=== PATIENT | female | born 1955 | race Caucasian/White ===

== ENCOUNTER 2021-05-12 10:21 | Outpatient (REF) | payer SELFPAY | END 2021-05-12 10:22 | disposition home or self-care (01) | LOC: HO.HAP 10:21 | PROVIDERS: Visit Provider Family Medicine | DX: Z46.1 Encounter for fitting and adjustment of hearing aid (principal) | CPT/HCPCS: V5014 ==

== ENCOUNTER 2024-05-03 08:36 | Outpatient (REF) | payer MEDICARE, SELFPAY ==
--- NOTE | 2024-05-04 15:25 | MHC.AU.HA3 ---
Hearing Instrument Follow-Up- Binaural Date of Visit: 05/04/24 Follow-Up Summary: Tawanna is a previous hearing aid user from our clinic (sister of Jhoana Horvath), fit with Phonak Virto B90 Titanium CICs approximately 5 years ago. She recently lost her left device, and notes the occupational therapist's assistant end of her right device is beginning to fall into the shell. She brings with her a pair of Resound RICs, donated to her by her sister, which she hopes to have programmed as either a temporary or buttermaker continuous churn solution, though she would prefer to stick with the CIC style. Hearing thresholds relatively stable re: 2019 evaluation. Due to time constraints (pt arrived 15 min late), was only able to best-fit the Resound aids, and recommended earmolds and reprogramming with real ear measurements. Quoted $130 for slim tips, $50 for any maintenance or adjustments in the future. Reviewed standard pricing for new hearing aids. Per Donna, able to waive the $350 HAE fee. Tawanna inquired about business services administrator family discount as sister was longtime employee and still licensed; per Donna, will need to contact her after speaking with [employer] but as sister is no longer employee there is likely not any viable option for further discount. Diagnosis Code(s): Primary Diagnosis: H90.3 Bilateral Sensorineural Hearing Loss Signature: Provider: Ciara Raymond, [facility]
== END 2024-05-03 08:37 | disposition home or self-care (01) ==
LOC: HO.SH 08:36
PROVIDERS: Visit Provider Nurse Practitioner Primary Care
DX: Z01.118 Encounter for examination of ears and hearing with other abnormal findings (principal); H90.3 Sensorineural hearing loss, bilateral
CPT/HCPCS: 92557

== ENCOUNTER 2025-03-27 07:59 | Outpatient (REF) | payer MEDICARE, SELFPAY ==
--- OUTSIDE RECORDS SUMMARY | 2025-03-27 08:03 | XMS_ITS | Encounter Summary ---
Author Organization [facility] Address [address] [place] [address] [place] [address] Phone Care Team Providers Care Project Program Manager Name Role Phone Katie Gonzalez [facility] Primary Care Provider [phone] Soren Cesar [facility] Primary Care Provider + Soern Cesar [facility] Unavailable [phone] Encounter Details Date Type Department Care Team (Late st Contact Info) Description 06/27/2023 Procedure Pass [facility] Cardiovascular And Interventional Radiology [address] [place] [address] Social History Tobacco Use Types Packs/Day Years Used Date Smoking Tobacco: Never Smokeless Tobacco: Never Alcohol Use Standard Drinks/Week Comments Yes 1 (1 standard drink = 0.6 oz pure alcohol) 1 drink per week-2 glasses of wine Home Health Assessment: Transportation Answer Date Recorded Lack of Transportation (Medical) No 06/09/2023 Lack of Transportation (Non-Medical) No 06/09/2023 Patient Unable or Declines to Respond No 06/09/2023 Child or Family Care Answer Date Record ed Do you have problems with on e of the following making it difficult for you to work, study, or receive health care? No 06/18/2021 Education Answer Date Recorded Are you interested in more education? Not on gee e 06/20/2023 Are you concerned about learning? Not on file 06/20/2023 No 06/20/2023 No 06/20/2023 Food Answer Date Recorded Within the past 6 months we worried whether our food would run out before we got money to buy more. Never True 06/18/2021 Within the past 6 months the food we bought just didn't last and we didn't have enough money to get more. Never True Residential Stability Answer Date Recor ded What is your housing situation today? I have moni sing 06/18/2021 How many times have you move d in the past 12 months? Zero (I did not move) 06/18/2021 Paying for Meds Answer Date Recorded Do you have trouble paying for medicines? I jose se not to answer 06/18/2021 Paying Utility Bills Answer Date Record ed Do you have trouble paying your heating or elect ricity bill? No 06/18/2021 Transportation Answer Date Recorded Has the lack of transportati on kept you from medical appointments or from getting medications? No 06/18/2021 Unemployment Answer Date Recorded Are you currently unemployed or working on a part-time or temporary basis, and looking for work? I choose not to answer 06/18/2021 Digital Access Answer Date Recorded No 11/02/2022 No 11/02/2022 Reliable internet access at home? Not on file 11/02/2022 Device with a working camera? 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 file Not on file No t on file documented as of this encounter Plan of Treatment Upcoming Encounters Date Type Department Care Team (Late st Contact Info) Description 04/18/2025 9:00 AM EST Office Visit [facility] [address] [place] [address] 3rd Floor, [address] [place] [address] José Calhoun MD 22 [facility], [address] [place] [address] documented as of this encounter Visit Diagnoses Not on filedocumented in this encounter Additional Health Concerns Assessment Noted Time PHQ-2 Depression Total Score: 0 08/04/19 23 3:35 PM EST documented as of this encounter Care Teams Project Program Manager Relationship Specialty Start Date End Date Katie Gonzalez CNP 15 [facility], 2nd [place] [address] [email or web address] PCP - General Nurse Practitioner 05/16/23 08/18/23 Soren Cesar CNP 234 [facility], [facility] 7 [place] [address] PCP - General Family Medicine 08/19/23 Soren Cesar CNP [address] [place] [address], [facility] 7 [place] [address] [email or web address] Insurance Assigned Provider 09/16/24 documented as of this encounter Additional Source Comments The information contained in this document represents components of the legal health record. It is not the complete legal health record.[facility]
--- OUTSIDE RECORDS SUMMARY | 2025-03-27 08:03 | XMS_ITS | Encounter Summary ---
Author Organization [facility] Address [address] [place] [address] [place] [address] Phone Care Team Providers Care Truck Sales Representative Name Role Phone Katie Gonzalez MEDICAL OFFICE MANAGER Primary Care Provider [phone] Soren Cesar [facility] Primary Care Provider + Soren Cesar MEDICAL OFFICE MANAGER Unavailable [phone] Encounter Details Date Type Department Care Team (Late st Contact Info) Description 06/24/2023 Procedure Pass [facility], Ct Scan - [address] [address] Social History Tobacco Use Types Packs/Day Years [...] Description 04/18/2025 9:00 AM EST Office Visit [facility] [address] [place] [address] 3rd Floor, [address] [place] [address] José Calhoun MD 22 [facility], [address] [place] [address] documented as of this encounter Visit Diagnoses Not on filedocumented in this encounter Additional Health Concerns Assessment Noted Time PHQ-2 Depression Total Score: 0 08/04/19 23 3:35 PM EST documented as of this encounter Care Teams Truck Sales Representative Relationship Specialty Start Date End Date Katie Gonzalez CNP 15 [facility], 2nd [place] [address] [email or web address] PCP - General Nurse Practitioner 05/16/23 08/18/23 Soren Cesar CNP [address] [place] [address] 7 [place] [address] PCP - General Family Medicine 08/19/23 Soren Cesar CNP [address] [place] [address] 7 [place] [address] [email or web address] Insurance Assigned Provider 09/16/24 documented as of this encounter Additional Source Comments The information contained in this document represents components of the legal health record. It is not the complete legal health record.[facility]
--- OUTSIDE RECORDS SUMMARY | 2025-03-27 08:03 | XMS_ITS | Encounter Summary ---
Author Organization [facility] Address [address] [place] [address] Phone Care Team Providers Care Lithographic Retoucher Apprentice Name Role Phone Katie Gonzalez CNP Primary Care Provider [phone] Katie Gonzalez CNP Primary Care Provider [phone] Em Uribe Unavailable [phone] Pcp, Unknown Primary Care Provider Unavailabl e Katie Gonzalez CNP Primary Care Provider [phone] Soren Cesar [facility] Primary Care Provider + Soren Cesar [facility] Unavailable [phone] Encounter Details Date Type Department Care Team (Late st Contact Info) Description 01/27/2018 Ancillary Orders [facility],Outside Imaging [address] [place] [address] System, Provider Not In, [facility] [address] [address] Social History Tobacco Use Types Packs/Day Years Used Date Smoking Tobacco: Never Smokeless Tobacco: Never Alcohol Use Standard Drinks/Week Comments Yes 1 (1 standard drink = 0.6 oz pur e alcohol) Comments Unknown Sex and Gender Information Value Date Recorded Sex Assigned at Female 05/05/2023 12:38 PM EST Legal Sex Female 9:55 PM EDT Gender Identity Female 05/05/2023 12:38 PM EST Sexual Orientation Straight 05/29/2023 3: 10 PM EST documented as of this encounter Plan of Treatment Upcoming Encounters Date Type Department Care Team (Late st Contact Info) Description 04/18/2025 9:00 AM EST Office Visit [facility] 22 [facility] 3rd Floor, [address] [place] [address] José Calhoun MD 22 [facility], [address] [address] documented as of this encounter Results * US Thyroid Gland Outside (No Interpretation) (11/01/2016 12:00 AM EDT) Narrative SYSTEMGENERATED, DOCUMENTATION - 01/27/2018 11:26 AM EDT This study is for PACS storage only and not for interpretation. us Provider Not In System PhD IMG OUTSIDE IMAGING W /OUT INTERPRETATION Final Result documented in this encounter Visit Diagnoses Not on filedocumented in this encounter Care Teams Lithographic Retoucher Apprentice Relationship Specialty Start Date End Date Katie Gonzalez CNP [address] [address] PCP - General 03/31/17 07/05/19 Katie Gonzalez CNP [address] [address] PCP - General Family Medicine 07/06/19 05/04/23 Pcp, Unknown PCP - General 05/05/23 05/15/23 Katie Gonzalez CNP [address] [address] PCP - General Nurse Practitioner 05/16/23 08/18/23 Soren Cesar CNP [address] [place] [address] 7 [place] [address] [email or web address] PCP - General Family Medicine 08/19/23 Em Uribe [address] [place] [address] PHCM Community Health Worker 03/19/22 03/24/22 Soren Cesar CNP [address] [place] [address] 7 [place] [address] [email or web address] Insurance Assigned Provider 09/16/24 documented as of this encounter Additional Source Comments The information contained in this document represents components of the legal health record. It is not the complete legal health record.[facility]
--- OUTSIDE RECORDS SUMMARY | 2025-03-27 08:03 | XMS_ITS | Encounter Summary ---
Author Organization [facility] Address [address] [place] [address] Phone Care Team Providers Care Distance Education Faculty Liaison Name Role Phone Katie Gonzalez CNP Primary Care Provider [phone] Katie Gonzalez CNP Primary Care Provider [phone] Em Uribe Unavailable [phone] Pcp, Unknown Primary Care Provider Unavailabl e Katie Gonzalez CNP Primary Care Provider [phone] Soren Cesar [facility] Primary Care Provider + Soren Cesar [employer] Unavailable Encounter Details Date Type Department Care Team (Late st Contact Info) Description 04/10/2018 Transcribe Orders [facility] [address] [place] [address] [place] [address] Lynn Massey PA [address] [place] [address] [facility] [place] [address] Nontoxic multinodular goiter (Primary Dx) Social History Tobacco Use Types Packs/Day Years [...] Description 04/18/2025 9:00 AM EST Office Visit [facility] 22 [facility] 3rd Floor, [address] [place] [address] José Calhoun MD 22 [facility], [address] [place] [address] [email or web address] documented as of this encounter Results * Free T4 (04/10/2018 10:28 AM EDT) FREE T4 1.4 0.9 - 1.7 ng/dL [facility] Blood 04/10/2018 10:2 8 AM EDT 04/10/2018 10:31 AM EDT us Lynn Ulises [facility] [place] LAB BLOOD ORDERABLES Final Result Performing Organization Address City/Special Care Hospital/ZIP Co de Phone Number [address] [address] * TSH (04/10/2018 10:28 AM EDT) TSH 0.95 0.27 - 4.20 uIU/mL [facility] Blood 04/10/2018 10:2 8 AM EDT 04/10/2018 10:31 AM EDT Lynn [facility] [place] LAB BLOOD ORDERABLES Final Result [address] [address] documented in this encounter Visit Diagnoses Diagnosis Nontoxic multinodular goiter- Primary documented in this encounter Care Teams Distance Education Faculty Liaison Relationship Specialty Start Date End Date Katie Gonzalez CNP [address] [address] PCP - General 03/31/17 07/05/19 Katie Gonzalez CNP [address] [address] PCP - General Family Medicine 07/06/19 05/04/23 Pcp, Unknown PCP - General 05/05/23 05/15/23 Katie Gonzalez CNP [address] [address] PCP - General Nurse Practitioner 05/16/23 08/18/23 Soren Cesar CNP [address] [place] [address] PCP - General Family Medicine 08/19/23 Em Uribe [address] [place] [address] PHCM Community Health Worker 03/19/22 03/24/22 Soren Cesar CNP [address] [place] [address] 7 [place] [address] Insurance Assigned Provider 09/16/24 documented as of this encounter Additional Source Comments The information contained in this document represents components of the legal health record. It is not the complete legal health record.[facility]
--- OUTSIDE RECORDS SUMMARY | 2025-03-27 08:03 | XMS_ITS | Encounter Summary ---
Author Organization [facility] Address [address] [place] [address] [place] [address] Phone Care Team Providers Care Multi Share Program Coordinator Name Role Phone Katie Gonzalez CNP Primary Care Provider [phone] Em Uribe Unavailable [phone] Pcp, Unknown Primary Care Provider Unavailabl e Katie Gonzalez CNP Primary Care Provider [phone] Soren Cesar EVIDENCE CUSTODIAN Primary Care Provider + Soren Cesar CNP Unavailable Encounter Details Date Type Department Care Team (Late st Contact Info) Description 06/18/2021 Procedure Pass [facility] - [address] [place] [address] Social History Tobacco Use Types Packs/Day Years Used Date Smoking Tobacco: Never Smokeless Tobacco: Never Alcohol Use Standard Drinks/Week Comments Yes 1 (1 standard drink = 0.6 oz pure alcohol) 1 drink per week-2 glasses of wine Child or Family Care Answer Date Record ed Do you have problems with on e of the following making it difficult for you to work, study, or receive health care? No 06/18/2021 Education Answer Date Recorded Are you interested in help w ith more adult education (for example, completing high school, GED, job training, learning the Filipino language, technical skills, or developing parenting skills)? No 06/18/2021 Food Answer Date Recorded Within the past [...] work? I choose not to answer 06/18/2021 Comments No Sex and Gender Information Value [...] Description 04/18/2025 9:00 AM EST Office Visit [facility] [address] [place] [address] 3rd Floor, [address] [place] [address] José Calhoun MD 22 [facility], [address] [address] [email or web address] documented as of this encounter Visit Diagnoses Not on filedocumented in this encounter Care Teams Multi Share Program Coordinator Relationship Specialty Start Date End Date Katie Gonzalez CNP [address] [address] PCP - General Family Medicine 07/06/19 05/04/23 Pcp, Unknown PCP - General 05/05/23 05/15/23 Katie Gonzalez CNP [address] [address] PCP - General Nurse Practitioner 05/16/23 08/18/23 Soren Cesar, KARL [address] [place] [address] 7 [place] [address] PCP - General Family Medicine 08/19/23 Em Uribe 10 [place] [address] PHCM Community Health Worker 03/19/22 03/24/22 Soren Cesar, KARL [address] [place] [address] 7 [place] [address] Insurance Assigned Provider 09/16/24 documented as of this encounter Additional Source Comments The information contained in this document represents components of the legal health record. It is not the complete legal health record.[facility]
--- OUTSIDE RECORDS SUMMARY | 2025-03-27 08:03 | XMS_ITS | Clinical Summary ---
Author Organization [facility] Address [address] [place] [id number] Phone Care Team Providers Care [employer] Officer Name Role Phone Soren Galindo [employer] Primary Care Provider + Soren Galindo [employer] Unavailable [phone] Allergies Active Allergy Reactions Criticality Noted Date Comments Kxuqfgo-Tod-Tek Reductase Inhibitors 05/12/2017 Liver enzymes get very high. Medications CALCIUM ORAL Take 1 tablet by mouth daily. Active multivitamin per tablet Take 1 tablet by mouth daily. Active ascorbic acid, vitamin C, (VITAMIN C) 500 MG tablet Take 500 mg by mouth daily. Active acetaminophen (TYLENOL) 325 mg tablet Take 2 tablets (650 mg total) by mouth every 6 (six) hours as needed. 0 023 Active hydrOXYzine (ATARAX) 25 MG tablet Take 1 tablet (25 mg total) by mouth 3 (three) times a day as needed for itching. 30 tablet 024 Active metoprolol succinate (TOPROL-XL) 50 MG 24 hr tablet TAKE 1 TABLET BY MOUTH EVERY DAY 90 tablet 3 025 Active finasteride (PROSCAR) 5 mg tabletIndications: Androgenic alopecia TAKE 1 TABLET (5 MG TOTAL) BY MOUTH DAILY. 90 tablet 3 025 Active minoxidiL (LONITEN) 2.5 MG tabletIndications: Androgenic alopecia Take 1 tablet (2.5 mg total) by mouth daily. 90 tablet 025 Active lisinopril (PRINIVIL,ZESTRIL) 30 MG tabletIndications: Essential hypertension,Mixed hyperlipidemia TAKE 1 TABLET BY MOUTH EVERY DAY 90 tablet 3 025 Active ezetimibe (ZETIA) 10 mg tabletIndications: Essential hypertension,Mixed hyperlipidemia TAKE 1 TABLET BY MOUTH EVERY DAY 90 tablet 3 025 Active ELIQUIS 5 mg tablet TAKE 1 TABLET (5 MG TOTAL) BY MOUTH TWICE A DAY TO PREVENT BLOOD CLOT IN CHRONIC ATRIAL FIBRILLATION 60 tablet 11 025 Active apixaban (ELIQUIS) 5 mg tabletIndications: prevent thromboembolism in chronic atrial fibrillation Take 1 tablet (5 mg total) by mouth 2 (two) times a day. Indications: treatment to prevent blood clots in chronic atrial fibrillation 180 tablet 3 024 2024 Discontinued Active Problems Problem Noted Date Diagnosed Date Tongue plaque 11/28/2023 Assessment & Plan (11/28/2023 2:16 PM EDT): Oral Discomfort: Patient reports a coated tongue, but no other symptoms. Less likely to be oral Tess due to lack of other symptoms. -No specific treatment plan discussed. Rash 11/18/2023 Assessment & Plan (11/28/2023 2:15 PM EDT): Assessment & Plan Undiagnosed Rash: Persistent, worsening rash with pruritus and discomfort. Failed prior treatments with antibiotics and wqpx-jab-whhoept antifungals. Possible fungal etiology suggested by patient. Scab sent for pathology. -Start Hydroxyzine for pruritus, initially at night due to potential drowsiness. -Start a stronger topical steroid, apply twice daily for no more than two weeks. -Wait for pathology results to guide further treatment. Follow-up: Await pathology results and adjust treatment plan accordingly. Assessment & Plan (11/18/2023 12:35 PM EDT): Erythrasma: Bilateral axillary rash of 2.5 weeks duration, initially thought to be fungal or allergic reaction. It has become painful and darkened in color. Failed treatment with miconazole, clotrimazole, cortisone cream, and Bactine. -Start Clindamycin topical lotion twice daily for 7-10 days. -Continue use of Bactine for pain relief if needed. -Check for improvement in 48-72 hours. -If no improvement, patient to contact office. S/P laparoscopic appendectomy 06/20/2023 Overview (08/23/2023): 05/2023-sepsis with perforation. Has had abscess formation requiring drainage. Assessment & Plan (08/23/2023 8:26 AM EDT): Has had several complicating abscesses, still has pain to palpation, is only just starting to get back to baseline for physical activity and diet. Continue to increase activity as tolerated, continue to advance diet as tolerated. Atrial fibrillation 05/24/2023 Overview (08/23/2023): Post-op. On eliquis, metoprolol, and finasteride without recurrence. Follows with cardiology. Assessment & Plan (08/23/2023 8:26 AM EDT): Was found postop, she was cardioverted and put on Eliquis and metoprolol. She was symptomatic at that time, with profound anxiety. She denies any recurrence of symptoms. Regular rate and rhythm today. Follow-up with cardiology. Assessment & Plan (05/25/2023 2:26 PM EST): Medical team consulted for A-fib with RVR Post operatively pt was tachycardic. CTA was done no PE. New atrial fibrillation on EKG 05/24, pt was SOB and tachycardic on 05/23, EKG on 05/22 showed NSR Cardiology consulted Metoprolol IV and PO added, metoprolol increased to 50 mg every 6 hours, given 1 dose of digoxin 0.5 mg Started on Eliquis for anticoagulation for elevated [id number] Echo showed Mild concentric LVH. LV cavity size is normal. 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 We discussed various options for finding a therapist Assessment & Plan (04/07/2018 8:57 AM EDT): Anxiety increased since dx w prostate cx. She is on low dose wellbutrin & feels this is helpful. Assessment & Plan (11/15/2017 2:25 PM EDT): As been on low-dose Wellbutrin with good effect since she came to me. Continue current regimen Bilateral hearing loss 11/15/2017 Assessment & Plan (11/15/2017 2:24 PM EDT): Evaluated by audiology, she will bring in results. Referred to ENT Dysfunction of both eustachian tubes 11/15/2017 Assessment & Plan (11/15/2017 2:25 PM EDT): Restart Flonase and continue antihistamine Fibrocystic breast changes of both breasts 05/02 Overview (05/02/2017): Hx multiple fibroadenomas & breast cyst. Bx negative Assessment & Plan (05/02/2017 8:22 PM EST): UTD on mammo Essential hypertension 05/02/2017 Overview (08/23/2023): Lisinopril 30mg Assessment & Plan (08/23/2023 8:27 AM EDT): Stable in office today. Continue with current lisinopril 30 mg. Assessment & Plan (05/24/2023 1:23 PM EST): Continue Lisinopril Metoprolol added for rate control Assessment & Plan (10/21/2022 4:06 PM EDT): Well-controlled Assessment & Plan (08/04/2022 5:56 PM EST): Well-controlled Assessment & Plan (03/18/2022 3:48 PM EDT): Continue current regimen Assessment & Plan (09/17/2021 4:18 PM EDT): continue lisinopril. Monitor BP while on minoxidil & finasteride Assessment & Plan (03/09/2021 3:39 PM EDT): Asked her to go for labs keely. Continue lisinopril. Next FU should be OV Assessment & Plan (08/07/2019 2:52 PM EST): Recommend she take lisinopril daily Assessment & Plan (04/07/2018 9:00 AM EDT): Well controlled Assessment & Plan (11/15/2017 2:25 PM EDT): Continue current regimen Assessment & Plan (08/10/2017 8:49 PM EST): Having low BPs at home and we're increasing her spironolactone so I will have her decrease lisinopril to 10 mg Assessment & Plan (05/26/2017 2:00 PM EST): Increased prolactin to 50 mg. Email me with blood pressure readings in one week Assessment & Plan (05/12/2017 1:10 PM EST): Decreasing lisinopril from 40 to 20 mg & HCTZ from 25 to 12.5 since we will be adding in & tapering up spironolactone. FU 2 weeks Hyperlipidemia 05/02/2017 Assessment & Plan (05/25/2023 2:22 PM EST): Continue Zetia Assessment & Plan (10/21/2022 4:06 PM EDT): Continue Zetia Assessment & Plan (03/18/2022 3:49 PM EDT): Can you Zetia. For mildly elevated triglycerides I recommend omega-3 or eating more fish or flax oil supplement Assessment & Plan (09/17/2021 4:18 PM EDT): Continue Zetia. Labs before next visit Assessment & Plan (06/18/2021 9:17 PM EST): Dietary changes & trial of another statin discussed. Due ot hx of liver injury on statin will start her on Zetia Assessment & Plan (03/09/2021 3:39 PM EDT): Recheck lipid panel Assessment & Plan (04/07/2018 8:59 AM EDT): Pt trying to control w diet. FU labs before next visit Prediabetes 05/02/2017 Assessment & Plan (05/25/2023 2:23 PM EST): On Metformin at home HgbA1C 05/2023 was 5.8% Glucose have been within range on am BMP Follow up A1C, consider low dose SS insulin pending results. Assessment & Plan (10/21/2022 4:06 PM EDT): She is tolerating metformin well. Assessment & Plan (08/04/2022 5:57 PM EST): She would like to start metformin. She was counseled on benefits and risks/side effects. Start 500 mg daily with meal. Follow-up in 3 months Assessment & Plan (03/18/2022 3:49 PM EDT): Due to financial strain she is buying more affordable foods which means she is eating more carbohydrates. Today we discussed getting vegetables from food bank. Discussed walking more to reduce insulin resistance. Recheck A1c in 3 months Assessment & Plan (03/09/2021 3:40 PM EDT): She is off metformin due to difficulty remembering to take it. Labs ordered Assessment & Plan (08/07/2019 2:52 PM EST): Pt follows very healthy lifestyle. She will start metformin. Possible side effects reviewed. FU 3 mos Assessment & Plan (05/02/2017 8:22 PM EST): Discussed diet & exercise. 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 Minoxidil prescription Sig was corrected. Continue taking 2.5 mg daily Assessment & Plan (09/17/2021 4:19 PM EDT): Reviewed possible side effects of finasteride and oral minoxidil. Fortunately she is tolerating them very well. Refill sent. Follow-up in 3 months for BP recheck, sooner if any symptoms of low blood pressure. Assessment & Plan (04/07/2018 8:59 AM EDT): On low dose spironolactone. Follows with Andrew Warren Assessment & Plan (11/15/2017 2:26 PM EDT): She stops prolactin due to side effects. She is still on Rogaine. I do not recommend starting hormone therapy or treating with levothyroxine in the absence of hypothyroidism. We discussed some cosmetic options and follow-up with dermatology Assessment & Plan (08/10/2017 8:49 PM EST): she is noticing improvement on spironolactone 100 mg. She would like to try and get up to 200 mg which is the recommended dose for androgenic alopecia treatment. She is going to increase it to 150 mg now. She is advised to inform me if the headaches become more frequent or severe. She will go for labs today. Assessment & Plan (05/12/2017 1:09 PM EST): Derm agrees, androgenic alopecia. Recommended spironolactone. Reviewed ADRs w her, especially hyperkalemia & hypotension. Made adjustments to her dose of lisinopril & HCTZ. She will get labs first before starting med changes. She will FU w me in 2 weeks for recheck of BP & K level. I gave her lists of high & low K foods. Assessment & Plan (05/02/2017 8:21 PM EST): Labs order. Suspect androgenic alopecia. Referred to derm. Primary insomnia 05/02/2017 Overview (05/02/2017): Awakens 4-5 times per night, often because of vivid dreams. Can't fall back asleep. Often uses melatonin at bedtime but it doesn't help Assessment & Plan (05/02/2017 8:21 PM EST): Discussed CBTI techniques Tinnitus of both ears 05/02/2017 Overview (05/02/2017): Chronic. Has some hearing loss on right. Had evaluation w manufacturing sales representative Rosacea 05/02/2017 Overview (05/02/2017): Acne rosacea. used topical clindamycin for several years. Assessment & Plan (05/02/2017 8:21 PM EST): Will try switching to metrogel Multiple thyroid nodules 05/02/2017 Overview (03/18/2022): 10/2016 Ul multiple small bilat nodules, largest on R lobe 11 mm x 10 mm. 05/2018 Bx benign. Plan yearly FU UL 06/[address] Mahan. Yanet. Recommend FU UL in 1 year 06/2021 Diffuse bilateral thyroid nodules, the vast majority with cystic components. The largest is located on the right measuring 1.1 cm in maximal diameter. None have developed features suspicious to warrant FNA. No definite follow-up is indicated. Assessment & Plan (05/25/2023 2:23 PM EST): TSH normal Assessment & Plan (04/07/2018 8:58 AM EDT): Following antonio Massey. FU UL planned in 6 mos Assessment & Plan (05/02/2017 8:26 PM EST): FU UL due 10/2017 Resolved Problems Problem Noted Date Diagnosed Date Resolved Date Intra-abdominal abscess 05/29/202301/2024 Right lower quadrant abdominal pain 05/23/2023 06/20/2023 Perforated appendicitis 05/22/202301/2024 Assessment & Plan (05/25/2023 2:23 PM EST): Presented to the hospital on 05/22 with abd pain found to have perforated appendicitis CT on admission showed: Acute perforated appendicitis, with likely organizing 3.3 cm right lower quadrant abscess. Soft tissue along the cecal base may represent reactive inflammation. Underlying lesion is not excluded. On 05/22/2023 she underwent LAPAROSCOPIC APPENDECTOMY intra operative findings include: Perforated appendix with adjacent abscess and copious purulent fluid throughout the abdomen. Continue Zosyn as per surgery Acute pain of left knee 06/18/202110/11 Assessment & Plan (06/18/2021 9:10 PM EST): Xray and PT ordered Post-menopausal bleeding 08/10/201811/2021 Assessment & Plan (08/10/2018 9:08 PM EST): Recommendation for pelvic ultrasound and endometrial biopsy were reviewed with patient. Labs were also ordered. She is referred to gynecology for biopsy. Pain of right hip joint 04/07/2018/07/2022 Assessment & Plan (06/18/2021 9:12 PM EST): Xray & PT ordered Assessment & Plan (04/07/2018 9:01 AM EDT): Given home exercises. Pt advised to follow up if sx worsen or fail to improve. Chronic allergic rhinitis 11/15/2017 Assessment & Plan (11/15/2017 2:25 PM EDT): Continue antihistamine Encounters Date Type Department Care Team Description 03/12/2025 Refill [facility] [address], [address] [place] [address] José Calhoun MD Medication Refill 02/21/2025 Refill [facility] [address] [place] [address] Angela Jerez MD Medication Refill 01/14/2025 Telephone [facility] [address] [place] [address] Sroen Galindo CNP Referral ([facility]) from Last 3 Months Immunizations Immunization Administration Dates Next Due COVID-19 (Pre-04/04) Pfizer Vaccine, mRNA, PF 09/11/2020,08/21/2020 Influenza High-Dose Quadriva lent Preservative Free IM 05/27/2023(Deferred: Patient Refused),06/18/2021 Influenza Quadrivalent Prese rvative Free IM 03/09/2018,05/02/2017 Influenza Recombinant Esdras valent Preservative Free IM 03/25/2020 Pneumococcal conjugate PCV20 03/18/2022 Pneumococcal polysaccharide PPSV23 06/18/2021 Td (adult),2 Lf Tetanus Toxo id, PF, Adsorbed 03/18/2022 Family History Medical History Relation Comments Melanoma Daughter stage 2 Brain cancer Father Glioblastoma Hyperlipidemia Father Hypertension Father Stroke Maternal Grandfather Osteoporosis Maternal Grandmother Stroke Maternal Grandmother Alzheimer's disease Mother Hypertension Mother Vascular degeneration Mother Breast cancer Niece Peripheral Arterial Disease Paternal Grandfather Stroke Paternal Grandfather Stroke Paternal Grandmother Brain cancer Paternal Uncle Anxiety disorder Sister 1 Hyperlipidemia Sister 1 Hypertension Sister 1 Hyperlipidemia Sister 2 Hypertension Sister 2 Relation Status Comments Brother Alive Daughter Alive Father (Age 72) Maternal Grandfather Maternal Grandmother Mother (Age 85) Niece Paternal Grandfather Paternal Grandmother Paternal Uncle Sister 1 Alive Sister 2 Alive Social History Tobacco Use Types Packs/Day Years Used Date Smoking Tobacco: Never Smokeless Tobacco: Never Tobacco Cessation:Counseling Given: Not Answered Alcohol Use Standard Drinks/Week Comments Not Currently 1 (1 standard drink = 0.6 oz pur e alcohol) hasn't drank since may Home Health Assessment: Transportation Answer Date Recorded [...] with a working camera? Not on file Intimate Partner Violence Answer Date R ecorded Are you denied basic needs s uch as food, clothing, or medical care? No 08/18/2023 In the past 12 months have y ou been in a relationship with a person who hurts, threatens, or tries to control you? No 08/18/2023 Are you denied basic needs s uch as food, clothing, or medical care? No 08/18/2023 In the past 12 months have y ou been in a relationship with a person who hurts, threatens, or tries to control you? No 08/18/2023 Comments No Sex and Gender Information Value Date Recorded Sex Assigned at Female 05/05/2023 12:38 PM EST Legal Sex Female 9:55 PM EDT Gender Identity Female 05/05/2023 12:38 PM EST Sexual Orientation Straight 05/29/2023 3: 10 PM EST Occupation Industry Job Start Date Job End Date Working / retired teacher Not on file Not on file No t on file Last Filed Vital Signs Vital Sign Reading Time Taken Comments Blood Pressure 132/82 05/29/2024 9:48 AM EST Pulse 84 05/29/2024 9:48 AM EST Temperature 36.2 C (97.2 F) 05/29/2024 9:48 AM EST Respiratory Rate 18 11/28/2023 1:45 PM EDT Oxygen Saturation 98% 05/29/2024 9:48 AM EST Inhaled Oxygen Concentration - - Weight 88 kg (194 lb) 05/29/2024 9:48 AM EST Height 170.2 cm (5' 7.01 ) 05/29/2024 9:48 AM ES T Body Mass Index 30.38 05/29/2024 9:48 AM EST Plan of Treatment Upcoming Encounters Date Type Department Care Team (Late st Contact Info) Description 04/18/2025 9:00 AM EST Office Visit [facility] [address] [place] [address] [address] Floor, [address] [place] [address] José Calhoun MD [address], [address] [place] [address] [email or web address] Health Maintenance Due Date Last Done Comments HEPATITIS C SCREENING 1973 COLOGUARD 2000 COLONOSCOPY 2000 FOBT 2000 SIGMOIDOSCOPY 2000 VIRTUAL COLONOSCOPY 2000 ZOSTER VACCINES (1 of 2) 2005 COLORECTAL CANCER SCREENING 03/17/2023 FIT TEST 03/17/2023 03/17/2022 MAMMOGRAM 07/10/2023 07/10/2021, 08/10/2019 DEPRESSION SCREENING 08/17/2024 08/18/2023 CREATININE LEVEL 08/31/2024 09/01/2023, 04/2024, 06/16/2023, Additional history exists POTASSIUM LEVEL 08/31/2024 09/01/2023, 06/13, 06/16/2023, Additional history exists BLOOD PRESSURE 11/27/2024 05/29/2024 INFLUENZA VACCINE (#1) 2025 , 03/25/2020, 03/09/2018, Additional history exists COVID-19 VACCINE ( season) 2025 09/11/2020, 08/21/2020 SCREENING FOR DIABETES 09/13/2026 09/14/2023, 2023 LIPID PANEL 05/25/2028 05/25/2023, 10/2021, 06/17/2021, Additional history exists RSV VACCINE (1 - 1-dose 75+ series) 2030 Adult Td,Tdap Booster 03/18/2032 03/18/2022 PNEUMOCOCCAL VACCINES (50+ years) Completed 03/18/2022, 06/18/2021 OSTEOPOROSIS SCREENING INITIAL (ONE-TIME) Completed 05/23/2024 SMOKING STATUS SCREENING (Once After 26 Yrs) Completed 05/29/2024 HEPATITIS A VACCINES Aged Out No long er eligible based on patient's age to complete this topic HIB VACCINES Aged Out No longer eligi ble based on patient's age to complete this topic MENINGOCOCCAL VACCINES (ACWY) Aged Out No longer eligible based on patient's age to complete this topic MENINGOCOCCAL VACCINES (B) Aged Out N o longer eligible based on patient's age to complete this topic Medical Devices Not on file Procedures Procedure Name Priority Date/Time Associated Diagnosis Comments BD DXA AXIAL (SPINE) WITH HIP Routine 05/23/2024 1:49 PM EST Screening due COMPREHENSIVE METABOLIC PANEL Routine 09/01/2023 10:37 AM EDT S/P laparoscopic appendectomy LIPID PANEL Routine 05/25/2023 2:48 AM EST HC BLOOD OCCULT FECAL HGB DETER IA QUAL FECES 1-3 Routine 03/17/2022 8:00 AM EDT Screening for colon cancer BI MAMMOGRAM SCREENING WITH TOMOSYNTHESIS WITH CAD (BILATERAL) Routine 07/10/2021 3:25 PM EST Screening breast examination from Last 3 Months or Most Recently Relevant to Health Maintenance Results * BD DXA AXIAL (SPINE) WITH HIP (05/23/2024 1:49 PM EST) Anatomical Region Laterality Modality Bone Density Bone Density 05/23/2024 1:47 PM EST Impressions 05/23/2024 1:52 PM EST Interpretation: Osteopenia. Narrative 05/23/2024 1:52 PM EST Referred By: SOREN GALINDO Indications: Postmenopausal Scanner: [employer] with serial# of [id number] located at [facility] Bone Density Scan (DXA) 05/23/24 Details of prior DXA scans are available by clicking View Image BMD T- Z- Skeletal Site gm/cm2 score score BMD Change Since Prior Scan ------ ----- ----- PA Spine (L1-L4) 1.119 0.70 2.70 0.013 (stable) since 02/23/2012 Total Hip (Right) 0.898 -0.40 1.10 -0.083 (-8.5%)* since 02/23/2012 Femoral Neck (Right) 0.728 -1.10 0.60 -0.032 (-4.2%)* since 02/23/2012 ------ ----- ----- * Denotes significant change when >= 0.022 g/cm2 for the spine, 0.027 g/cm2 for the total hip, 0.029 g/cm2 for the femoral neck. Interpretation: Osteopenia. Technical Quality: Imaging of all sites was of adequate quality. FRAX: Based on FRAX(r) 3.6 ([place] White female), this patient's likelihood of hip fracture is 0.8% and major osteoporotic fracture is 8.4% over the next 10 years. The patient reported no risks of fracture. Additional Information: -World Health Organization criteria classify adults based on lowest T-score at PA spine, hip or forearm: Normal (T-score >= -1.0), Osteopenia (T-score between -1 and -2.5), or Osteoporosis (T-score <= -2.5). At [facility], T-scores are compared to peak bone density of a young white gender matched reference population. - For premenopausal women and men under the age of 50, Z-scores (comparison to age, gender, and ethnicity matched reference population) are used: Above expected range for age (Z-score >= 2.0), Within expected range of age (Z-score 1.9 to -1.9), or Below expected range for age (Z-score <= -2.0). - The Bone Health and Osteoporosis Foundation recommends that treatment be considered in men aged more than 50 years and in postmenopausal women with ANY of the following: Prior hip or vertebral fractures; T-score of <= -2.5 at the PA spine or hip; or 10 year fracture probability by FRAX of >= 3% for the hip or >= 20% for major osteoporotic fracture. - The FRAX algorithm (https://www.rory.ac.uk/FRAX/tool.aspx) is designed to predict 10-year fracture risk in treatment-naive adults between the ages of 40 and 90. It is not intended to be used in those receiving pharmacologic osteoporosis treatment. - Including race/ethnicity in the generation of T- or Z-scores or in the FRAX calculation is complicated, and currently undergoing active review to ensure that we can give patients the best information on their risk of fracture. -Some prior studies may not be compatible with our comparison software. -Click on View Full Report to see subsequent pages with images and prior bone density results. Reviewed By: Cullen Zurita MD on 05/23/2024 13:52:03 Procedure Note Cullen Zurita MD - 05/23/2024 Referred By: SOREN GALINDO Indications: Postmenopausal Scanner: [employer] with serial# of [id number] located at [facility] Bone Density Scan (DXA) 05/23/24 Details of prior DXA scans are available by clicking View Image BMD T- Z- Skeletal Site gm/cm2 score score BMD Change Since Prior Scan ------ ----- PA Spine (L1-L4) 1.119 0.70 2.70 0.013 (stable) since02/23/2012 Total Hip (Right) 0.898 -0.40 1.10 -0.083 (-8.5%)* since02/23/2012 Femoral Neck (Right) 0.728 -1.10 0.60 -0.032 (-4.2%)* since02/23/2012 ------ ----- * Denotes significant change when >= 0.022 g/cm2 for the spine, 0.027g/cm2 for the total hip, 0.029 g/cm2 for the femoral neck. Interpretation: Osteopenia. Technical Quality: Imaging of all sites was of adequate quality. FRAX: Based on FRAX(r) 3.6 ([place] White female), this patient's likelihoodof hip fracture is 0.8% and major osteoporotic fracture is 8.4% over the next 10 years. The patient reported no risks of fracture. Additional Information: -World Health Organization criteria classify adults based on lowestT-score at PA spine, hip or forearm: Normal (T-score >= -1.0), Osteopenia (T-score between -1 and -2.5), or Osteoporosis (T-score <= -2.5). At [facility], T-scores are compared to peak bone density of a young white gender matched reference population. - For premenopausal women and men under the age of 50, Z-scores(comparison to age, gender, and ethnicity matched reference population) are used:Above expected range for age (Z-score >= 2.0), Within expected range of age (Z-score 1.9 to -1.9), or Below expected range for age (Z-score <= -2.0). - The Bone Health and Osteoporosis Foundation recommends that treatment be considered in men aged more than 50 years and in postmenopausal women with ANY of the following: Prior hip or vertebral fractures; T-score of <= -2.5 at the PA spine or hip; or 10 year fracture probability by FRAX of >= 3%for the hip or >= 20% for major osteoporotic fracture. - The FRAX algorithm (https://www.rory.ac.uk/FRAX/tool.aspx) is designed to predict 10-year fracture risk in treatment-naive adultsbetween the ages of 40 and 90. It is not intended to be used in those receiving pharmacologic osteoporosis treatment. - Including race/ethnicity in the generation of T- or Z-scores or in the FRAX calculation is complicated, and currently undergoing active review to ensure that we can give patients the best information on their risk of fracture. -Some prior studies may not be compatible with our comparison software. -Click on View Full Report to see subsequent pages with images and prior bone density results. Reviewed By: Cullen Zurita MD on 05/23/2024 13:52:03 IMPRESSION: Interpretation: Osteopenia. Soren Galindo [facility] IMG BD BONE DENSITY DEXA Final Result * (ABNORMAL) Comprehensive metabolic panel (09/01/2023 10:37 AM EDT) SODIUM 140 133 - 146 mmol/L [facility] POTASSIUM 4.5 3.3 - 5.1 mmol/L [facility] CHLORIDE 103 96 - 108 mmol/L [facility] CO2 28 21 - 35 mmol/L [facility] BUN 20(H) 6 - 19 mg/dL [facility] CREATININE 0.50 0.5 - 1.5 mg/dL [facility] GLUCOSE 105(H) 70 - 99 mg/dL [facility] ALBUMIN 4.7 3.9 - 4.8 g/dL [facility] TOTAL PROTEIN 7.7 6.5 - 8.0 g/dL [facility] CALCIUM 9.8 8.4 - 10.3 mg/dL [facility] ALKALINE PHOSPHATASE 71 39 - 117 U/L [facility] TOTAL BILIRUBIN 0.4 0.0 - 1.2 mg/dL [facility] AST 25 0 - 37 U/L [facility] ALT 22 0 - 40 U/L [facility] GLOBULIN 3.0 1 - 4.8 g/dL [facility] EGFR 102 >59 mL/min/1.7 3m2 [facility] Comment:Estimated glomerular filtration rate calculated using the CKD-EPI refit equation. ANION GAP 14 10 - 20 mmol/L [facility] Blood 09/01/2023 10:3 7 AM EDT 09/01/2023 10:42 AM EDT us Brenna Fitzgerald MD LAB BLOOD ORDERABLES Final R esult Performing Organization Address City/State/[facility] Co de Phone Number [address] [address] * (ABNORMAL) Lipid panel (05/25/2023 2:48 AM EST) HDL 13 mg/dL [facility] Comment: Interpretation <40 mg/dL: Low HDL cholesterol (major risk factor for CHD) Greater than or equal to 60 mg/dL: High HDL cholesterol ( negative risk factor for CHD) HDL - cholesterol is affected by a number of factors, e.g. smoking, excerise, hormones, sex and age. CHOLESTEROL 127 0 - 240 mg/dL [facility] TRIGLYCERIDES 387(H) 30 - 160 mg/dL [facility] LDL 37(L) 50 - 129 mg/dL [facility] Comment: LDL levels in terms of risk for coronary heart disease: <100 mg/dL: Optimal 100-129 mg/dL: Near or above optimal 130-159 mg/dL: Borderline high 160-189 mg/dL: High >190 mg/dL: Very High CARDIAC RISK RATIO 9.8(H) 3.3 - 4.4 C [facility] Blood 05/25/2023 2:48 AM EST 05/25/2023 3:07 AM EST us Kelsey Foote HOME COORDINATOR LAB BLOOD ORDERABLES Fin al Result Performing Organization Address City/[facility]/ZIP Co de Phone Number [address] [address] * Fecal immunochemical test x1 (FIT) (03/17/2022 8:00 AM EDT) Immuno Fecal Occult Negative Negative [facility] Stool (Stool) 03/17/2022 8:0 0 AM EDT 03/17/2022 10:59 AM EDT us Katie Gonzalez CNP BODY FLUIDS AND STOOLS ORD ERABLES Final Result Performing Organization Address [facility] Co de Phone Number [address] [address] * BI MAMMOGRAM SCREENING WITH TOMOSYNTHESIS WITH CAD (BILATERAL) (07/10/2021 3:25 PM EST) Anatomical Region Laterality Modality Breast Left, Breast Right, Breast Bilateral Bila teral Mammography 07/10/2021 4:33 PM EST Impressions 07/10/2021 4:39 PM EST BILATERAL BREASTS: Benign, no evidence of malignancy. Normal interval follow-up is recommended in 12 months. Bi-RADS: BI-RADS CATEGORY: 2 - Benign finding. DENSITY: The breast tissue is heterogeneously dense, which could obscure a lesion on mammography. Narrative 07/10/2021 4:39 PM EST STUDY: Bilateral screening mammography with tomosynthesis and CAD TECHNIQUE: Bilateral full-field digital screening mammography is obtained and read in conjunction with computer-aided detection. Tomosynthesis as well as 2-D C view imaging were obtained. COMPARISON: Comparison made to August 10, 2019 and October 20, 2016 BREAST COMPOSITION: The breast tissue is heterogeneously dense, which may obscure small masses. RIGHT BREAST: History of previous excisional biopsy. No significant masses, suspicious calcifications or other abnormalities are seen. LEFT BREAST: History of previous excisional biopsy. No significant masses, suspicious calcifications or other abnormalities are seen. Procedure Note Kal Weber MD - 07/10/2021 STUDY: Bilateral screening mammography with tomosynthesis and CAD TECHNIQUE: Bilateral full-field digital screening mammography is obtainedand read in conjunction with computer-aided detection. Tomosynthesis aswell as 2-D C view imaging were obtained. COMPARISON: Comparison made to August 10, 2019 and October 20, 2016 BREAST COMPOSITION: The breast tissue is heterogeneously dense, which mayobscure small masses. RIGHT BREAST: History of previous excisional biopsy. No significantmasses, suspicious calcifications or other abnormalities are seen. LEFT BREAST: History of previous excisional biopsy. No significantmasses, suspicious calcifications or other abnormalities are seen. IMPRESSION: BILATERAL BREASTS: Benign, no evidence of malignancy. Normal intervalfollow-up is recommended in 12 months. Bi-RADS: BI-RADS CATEGORY: 2 - Benign finding. DENSITY: The breast tissue is heterogeneously dense, which could obscurea lesion on mammography. Katie Gonzalez [facility] IMG MG EXAMS Final Resu lt from Last 3 Months or Most Recently Relevant to Health Maintenance Insurance MEDICARE PART A & B MEDICARE SUPPLEMENT MEDICARE PART A & B Member Subscriber Plan / Payer ( fective 2021-) Name:Tawanna Oseguera Member ID:[id number] Relation to Subscriber:Self Name:Tawnana Oseguera Subscriber ID:[id number] Payer ID:[id number] Group ID:[id number] VIA RITA 06/17/21 Type:Medicare Address: [employer] [address] [place] [id number] [place] [address] MEDICARE SUPPLEMENT MEDICARE PART A & B MEDICARE SUPPLEMENT MEDICARE PART A & B MEDICARE SUPPLEMENT MEDICARE PART A & B [facility] MEDICARE SUPPLEMENT MEDICARE PART A & B [id number] [place] [address] MEDICARE SUPPLEMENT MEDICARE PART A & B [facility] MEDICARE SUPPLEMENT MEDICARE PART A & B MEDICARE SUPPLEMENT MEDICARE PART A & B MEDICARE SUPPLEMENT Advance Directives For more information, please contact: [phone] (9AM - 5PM Marta/[facility], Tuesday-Tuesday) * Full Code (Latest Code Status on File) Date Activated Date Inactivated Comments 05/29/2023 9:15 PM Question Answer Comments Code Status Confirmed With: Patient * Full Code Date Activated Date Inactivated Comments 05/22/2023 1:26 PM 05/29/2023 9:15 PM Question Answer Comments Code Status Confirmed With: Patient Care Teams Community Service Patrol Officer Relationship Specialty Start Date End Date Soren Galindo CNP [address] [facility], [facility] 7 [place] [address] PCP - General Family Medicine 08/19/23 Soren Galindo CNP [address] [facility], [facility] 7 [place] [address] Insurance Assigned Provider 09/16/24 Additional Source Comments The information contained in this document represents components of the legal health record. It is not the complete legal health record.[facility]
--- OUTSIDE RECORDS SUMMARY | 2025-03-27 08:04 | XMS_ITS | Encounter Summary ---
Author Organization [facility] Address [address] [place] [address] [place] [address] Phone Care Team Providers Care Bulk Station Operator Name Role Phone Katie Gonzalez LEASE ADMINISTRATION SUPERVISOR Primary Care Provider [phone] Soren Cesar [facility] Primary Care Provider + Soren Cesar LEASE ADMINISTRATION SUPERVISOR Unavailable [phone] Encounter Details Date Type Department Care Team (Late st Contact Info) Description 06/27/2023 Procedure Pass [facility], Ct Scan - [address] [address] Social History Tobacco Use Types Packs/Day Years [...] Description 04/18/2025 9:00 AM EST Office Visit [facility] [address] [place] [address] 3rd Floor, [address] [place] [address] José Calhoun MD [address] [facility], [address] [place] [address] documented as of this encounter Visit Diagnoses Not on filedocumented in this encounter Additional Health Concerns Assessment Noted Time PHQ-2 Depression Total Score: 0 08/04/19 23 3:35 PM EST documented as of this encounter Care Teams Bulk Station Operator Relationship Specialty Start Date End Date Katie Gonzalez CNP [address] [facility], 2nd [place] [address] [email or web address] PCP - General Nurse Practitioner 05/16/23 08/18/23 Sroen Cesar CNP [address] [place] [address] 7 [place] [address] PCP - General Family Medicine 08/19/23 Soren Cesar CNP [address] [place] [address] 7 [place] [address] [email or web address] Insurance Assigned Provider 09/16/24 documented as of this encounter Additional Source Comments The information contained in this document represents components of the legal health record. It is not the complete legal health record.[facility]
--- OUTSIDE RECORDS SUMMARY | 2025-03-27 08:04 | XMS_ITS | Encounter Summary ---
Author Organization [facility] Address [address] [facility] [address] [place] [address] Phone Care Team Providers Care Supervisor Cutting And Boning Name Role Phone Katie Gonzalez CNP Primary Care Provider [phone] Soren Cesar CNP Primary Care Provider + Soren Cesar EMS INSTRUCTOR Unavailable [phone] Encounter Details Date Type Department Care Team (Late st Contact Info) Description 06/27/2023 Transcribe Orders [facility] Specimen Processing 30 [place] [address] Katie Gonzalez CNP [facility] 2nd [place] [address] [email or web address] Social History Tobacco Use Types Packs/Day Years [...] Description 04/18/2025 9:00 AM EST Office Visit [facility] [address] Floor, [address] [place] [address] José Calhoun MD 22 [facility], [address] [place] [address] [email or web address] documented as of this encounter Visit Diagnoses Not on filedocumented in this encounter Additional Health Concerns Assessment Noted Time PHQ-2 Depression Total Score: 0 08/04/19 23 3:35 PM EST documented as of this encounter Care Teams Supervisor Cutting And Boning Relationship Specialty Start Date End Date Katie Gonzalez CNP [address] [facility], 2nd [place] [address] [email or web address] PCP - General Nurse Practitioner 05/16/23 08/18/23 Soren Cesar CNP [address] [facility], [facility] 7 [place] [address] PCP - General Family Medicine 08/19/23 Soren Cesar CNP [address] [place] [address], [facility] 7 [place] [address] [email or web address] Insurance Assigned Provider 09/16/24 documented as of this encounter Additional Source Comments The information contained in this document represents components of the legal health record. It is not the complete legal health record.[facility]
--- OUTSIDE RECORDS SUMMARY | 2025-03-27 08:05 | XMS_ITS | Encounter Summary ---
Author Organization [facility] Address [address] [place] [address] [place] [address] Phone Care Team Providers Care Va Underwriter Name Role Phone Katie Gonzalez [facility] Primary Care Provider [phone] Soren Cesar [facility] Primary Care Provider + Soren Cesar LOSS PREVENTION CONSULTANT Unavailable [phone] Encounter Details Date Type Department Care Team (Late st Contact Info) Description 05/26/2023 Procedure Pass [facility] Cardiovascular And Interventional Radiology 30 [place] [address] Social History Tobacco Use Types Packs/Day Years [...] high school, GED, job training, learning the Cym[place] language, technical skills, or developing parenting skills)? [...] your housing situation today? I have moni aponte 06/18/2021 How many times have you move [...] on file documented as of this encounter Functional Status * Calculated C-SSRS Risk Score (Lifetime/Recent) Answer Date of Assessment Author No Risk Indicated 05/29/2023 9:30 PM EST Monika Barros RN * [place] Suicide Severity Rating Scale (Screener/Recent Self-Report) Question Answer Date of Assessment Author 1. Wish to be (Past 1 Month) No 023 9:30 PM EST Monika Barros RN 2. Non-Specific Active Suici mark Thoughts (Past 1 Month) No 05/29/2023 9:30 PM EST Arlette Barros RN 6. Suicidal Behavior (Lifetime) No 3 9:30 PM EST Monika Barros RN documented as of this encounter Plan of Treatment Upcoming Encounters Date Type Department Care Team (Late st Contact Info) Description 04/18/2025 9:00 AM EST Office Visit [facility] [address] [facility] 3rd Floor, [address] [place] [address] José Calhoun MD 22 [facility], [address] [address] [email or web address] documented as of this encounter Visit Diagnoses Not on filedocumented in this encounter Additional Health Concerns Assessment Noted Time PHQ-2 Depression Total Score: 0 08/04/19 23 3:35 PM EST documented as of this encounter Care Teams Va Underwriter Relationship Specialty Start Date End Date Katie Gonzalez CNP [address] [facility], 2nd [place] [address] PCP - General Nurse Practitioner 05/16/23 08/18/23 Soren Cesar CNP [address] [place] [address] PCP - General Family Medicine 08/19/23 Soren Cesar CNP [address] [place] [address] Insurance Assigned Provider 09/16/24 documented as of this encounter Additional Source Comments The information contained in this document represents components of the legal health record. It is not the complete legal health record.[facility]
--- OUTSIDE RECORDS SUMMARY | 2025-03-27 08:05 | XMS_ITS | Encounter Summary ---
Author Organization [facility] Address [address] [place] [address] [place] [address] Phone Care Team Providers Care Video Production Specialist Name Role Phone Katie Gonzalez FLOATING LABOR GANG SUPERVISOR Primary Care Provider [phone] Soren Cesar [facility] Primary Care Provider + Soren Cesar FLOATING LABOR GANG SUPERVISOR Unavailable [phone] Encounter Details Date Type Department Care Team (Late st Contact Info) Description 05/24/2023 Procedure Pass [facility] Echo Lab 30 [place] [address] Social History Tobacco Use Types Packs/Day Years [...] high school, GED, job training, learning the [place]ill[place] language, technical skills, or developing parenting skills)? [...] Description 04/18/2025 9:00 AM EST Office Visit [facility] [address] [place] [address] 3rd Floor, [address] [place] [address] José Calhoun MD 22 [facility], [address] [place] [address] documented as of this encounter Visit Diagnoses Not on filedocumented in this encounter Additional Health Concerns Assessment Noted Time PHQ-2 Depression Total Score: 0 08/04/19 3:35 PM EST documented as of this encounter Care Teams Video Production Specialist Relationship Specialty Start Date End Date Katie Gonzalez CNP 15 [facility], 2nd [place] [address] PCP - General Nurse Practitioner 05/16/23 08/18/23 Soren Cesar CNP [address] [place] [address] 7 [place] [address] PCP - General Family Medicine 08/19/23 Soren Cesar CNP [address] [place] [address] 7 [place] [address] [email or web address] Insurance Assigned Provider 09/16/24 documented as of this encounter Additional Source Comments The information contained in this document represents components of the legal health record. It is not the complete legal health record.[facility]
--- OUTSIDE RECORDS SUMMARY | 2025-03-27 08:05 | XMS_ITS | Encounter Summary ---
Author Organization [facility] Address [address] [place] [address] [place] [address] Phone Care Team Providers Care Electrical Unit Rebuilder Name Role Phone Katie Gonzalez JEWEL GRINDER Primary Care Provider [phone] Soren Cesar [facility] Primary Care Provider + Soren Cesar JEWEL GRINDER Unavailable [phone] Encounter Details Date Type Department Care Team (Late st Contact Info) Description 05/23/2023 Procedure Pass [facility], Ct Scan - [address] [address] Social History Tobacco Use Types Packs/Day Years [...] high school, GED, job training, learning the Gren[place] language, technical skills, or developing parenting skills)? [...] Description 04/18/2025 9:00 AM EST Office Visit [facility] [address] [place] [address] 3rd Floor, [address] [place] [address] José Calhoun MD 22 [facility], [address] [place] [address] documented as of this encounter Visit Diagnoses Not on filedocumented in this encounter Additional Health Concerns Assessment Noted Time PHQ-2 Depression Total Score: 0 08/04/19 3:35 PM EST documented as of this encounter Care Teams Electrical Unit Rebuilder Relationship Specialty Start Date End Date CarlosKatie KARL Moreno [address] [facility], 2nd [place] [address] PCP - General Nurse Practitioner 05/16/23 08/18/23 Soren Cesar CNP [address] [place] [address] PCP - General Family Medicine 08/19/23 Soren Cesar CNP [address] [place] [address] Insurance Assigned Provider 09/16/24 documented as of this encounter Additional Source Comments The information contained in this document represents components of the legal health record. It is not the complete legal health record.[facility]
--- OUTSIDE RECORDS SUMMARY | 2025-03-27 08:05 | XMS_ITS | Encounter Summary ---
Author Organization [facility] Address [address] [place] [address] [place] [address] Phone Care Team Providers Care Help Desk Coordinator Name Role Phone Katie Gonzalez CNP Primary Care Provider [phone]- [phone] Em Uribe Unavailable [phone] Pcp, Unknown Primary Care Provider Unavailabl e Katie Gonzalez CNP Primary Care Provider [phone]- [phone] Soren Cesar [facility] Primary Care Provider + Soren Cesar CNP Unavailable [phone] Encounter Details Date Type Department Care Team (Late st Contact Info) Description 07/06/2019 Ancillary Orders Virtual Department 30 [place] [address] Kami Mahan MD [facility], [address] [place] [address] [email or web address] Multinodular goiter; Nontoxic multinodular goiter Social History Tobacco Use Types Packs/Day Years Used Date Smoking Tobacco: Never Smokeless Tobacco: Never Alcohol Use Standard Drinks/Week Comments Yes 1 (1 standard drink = 0.6 oz pure alcohol) 1 drink per week-2 glasses of wine Comments No Sex and Gender Information Value [...] Description 04/18/2025 9:00 AM EST Office Visit [facility] [address] [facility] 3rd Floor, [address] [place] [address] José Calhoun MD 22 [facility], [address] [place], [place] [id number] [email or web address] documented as of this encounter Results * US Thyroid Gland (07/13/2019 1:26 PM EST) Anatomical Region Laterality Modality Neck, Head, Chest Ultrasound 07/13/2019 2:02 PM EST Impressions 07/13/2019 2:20 PM EST Multinodular thyroid without clearly worrisome nodules currently. None demand follow-up but given the increase in size of some, a follow-up study in a year may be appropriate. POS - [id number] Edited by: Mckenzie Suresh on 07/13/2019 2:13 PM Narrative 07/13/2019 2:20 PM EST COMPARISON: January 26, 2018 FINDINGS: Right thyroid lobe measured at 4.9 x 1.7 x 1.6 cm and left 4.8 x 1.8 x 1.5 cm. Isthmus measured at 3 mm in thickness. On the right two nodules are measured. One is wider than tall, predominantly isoechoic and somewhat spongiform-appearing and measures maximally 1.1 cm. It is wider than tall with slightly ill-defined borders. At this size and with these features no further follow-up is necessary. It has increased mildly since the prior study. Immediately inferior to this is a cystic lesion at the periphery measuring 1.0 cm maximally, nearly doubled in volume. On the left is a somewhat spongiform-appearing wider than tall 7 x 4 x 4 mm nodule without calcification. At this size with these features no further follow-up is necessary. A predominantly cystic but mixed cystic and solid lesion which is wider than tall measuring 1.2 x 0.7 x 0.8 cm has increased in size from 7 x 6 x 5 mm previously but has no clearly suspicious features. At this size no further follow-up is required. A third similar hypoechoic, well-circumscribed wider than tall nodule without calcification and without blood flow is new since prior, measured at 8 x 5 x 5 mm. Gland is heterogeneous throughout. No more dominant lesions are seen. No adenopathy is seen while scanning regionally. Procedure Note Brit Jimenez MD - 07/13/2019 COMPARISON: January 26, 2018 FINDINGS: Right thyroid lobe measured at 4.9 x 1.7 x 1.6 cm and left 4.8 x 1.8 x 1.5cm. Isthmus measured at 3 mm in thickness. On the right two nodules are measured. One is wider than tall,predominantly isoechoic and somewhat spongiform-appearing and measuresmaximally 1.1 cm. It is wider than tall with slightly ill-defined borders.At this size and with these features no further follow-up is necessary. Ithas increased mildly since the prior study. Immediately inferior to thisis a cystic lesion at the periphery measuring 1.0 cm maximally, nearlydoubled in volume. On the left is a somewhat spongiform-appearing wider than tall 7 x 4 x 4mm nodule without calcification. At this size with these features nofurther follow-up is necessary. A predominantly cystic but mixed cysticand solid lesion which is wider than tall measuring 1.2 x 0.7 x 0.8 cm hasincreased in size from 7 x 6 x 5 mm previously but has no clearlysuspicious features. At this size no further follow-up is required. Athird similar hypoechoic, well-circumscribed wider than tall nodulewithout calcification and without blood flow is new since prior, measuredat 8 x 5 x 5 mm. Gland is heterogeneous throughout. No more dominant lesions are seen. No adenopathy is seen while scanning regionally. IMPRESSION: Multinodular thyroid without clearly worrisome nodules currently. Nonedemand follow-up but given the increase in size of some, a follow-up studyin a year may be appropriate. POS - [id number] Edited by: Mckenzie Suresh on 07/13/2019 2:13 PM us Kami Mahan MD [facility] THYROID Final Result documented in this encounter Visit Diagnoses Diagnosis Multinodular goiter Nontoxic multinodular goiter Nontoxic multinodular goiter Multinodular goiter Nontoxic multinodular goiter Nontoxic multinodular goiter documented in this encounter Care Teams Help Desk Coordinator Relationship Specialty Start Date End Date Katie Gonzalez CNP [address] [address] PCP - General Family Medicine 07/06/19 05/04/23 Pcp, Unknown PCP - General 05/05/23 05/15/23 Katie Gonzalez CNP [address] [address] PCP - General Nurse Practitioner 05/16/23 08/18/23 Soren Cesar CNP [address] [place] [address] PCP - General Family Medicine 08/19/23 Em Uribe [address] [place] [address] PHCM Community Health Worker 03/19/22 03/24/22 Soren Cesar CNP [address] [place] [address] Insurance Assigned Provider 09/16/24 documented as of this encounter Additional Source Comments The information contained in this document represents components of the legal health record. It is not the complete legal health record.[facility]
--- OUTSIDE RECORDS SUMMARY | 2025-03-27 08:05 | XMS_ITS | Encounter Summary ---
Author Organization [facility] Address [address] [place] [address] [place] [address] Phone Care Team Providers Care Mine Analyst Name Role Phone Katie Gonzalez INTERN Primary Care Provider [phone] Soren Cesar [facility] Primary Care Provider + Soren Cesar INTERN Unavailable [phone] Encounter Details Date Type Department Care Team (Late st Contact Info) Description 05/29/2023 Procedure Pass [facility], Ct Scan - [address] [address] Social History Tobacco Use Types Packs/Day Years [...] high school, GED, job training, learning the Trin[place] language, technical skills, or developing parenting skills)? [...] 9:30 PM EST Monika Barros RN * [place] Suicide Severity Rating Scale (Screener/Recent Self-Report) Question [...] Description 04/18/2025 9:00 AM EST Office Visit [facility] 22 [facility] 3rd Floor, [address] [place] [address] José Calhoun MD 22 [facility], [address] [address] documented as of this encounter Visit Diagnoses Not on filedocumented in this encounter Additional Health Concerns Assessment Noted Time PHQ-2 Depression Total Score: 0 08/04/19 23 3:35 PM EST documented as of this encounter Care Teams Mine Analyst Relationship Specialty Start Date End Date Katie Gonzalez CNP 15 [facility], 2nd [place] [address] PCP - General Nurse Practitioner 05/16/23 08/18/23 Soren Cesar CNP [address] [place] [address] 7 [place] [address] PCP - General Family Medicine 08/19/23 Soren Cesar CNP [address] [place] [address] 7 [place] [address] Insurance Assigned Provider 09/16/24 documented as of this encounter Additional Source Comments The information contained in this document represents components of the legal health record. It is not the complete legal health record.[facility]
--- OUTSIDE RECORDS SUMMARY | 2025-03-27 08:05 | XMS_ITS | Encounter Summary ---
Author Organization [facility] Address [address] [place] [address] Phone Care Team Providers Care Rn Clinical Appeals Name Role Phone Katie Gonzalez CNP Primary Care Provider [phone] Katie Gonzalez CNP Primary Care Provider [phone] Em Uribe Unavailable [phone] Pcp, Unknown Primary Care Provider Unavailabl e Katie Gonzalez [facility] Primary Care Provider [phone] Soren Cesar [facility] Primary Care Provider + Soren Cesar [facility] Unavailable Encounter Details Date Type Department Care Team (Late st Contact Info) Description 10/05/2018 Procedure Pass [place] Admitting Dept - Virtual Department 30 [place] [address] Social History Tobacco Use Types Packs/Day Years [...] Description 04/18/2025 9:00 AM EST Office Visit [facility] [address] [place] [address] 3rd Floor, [address] [place] [address] José Calhoun MD [address] [address] documented as of this encounter Visit Diagnoses Not on filedocumented in this encounter Care Teams Rn Clinical Appeals Relationship Specialty Start Date End Date Katie Gonzalez CNP [address] [address] PCP - General 03/31/17 07/05/19 Katie Gonzalez CNP [address] [place] [address] PCP - General Family Medicine 07/06/19 05/04/23 Pcp, Unknown PCP - General 05/05/23 05/15/23 Katie Gonzalez CNP [address] [place] [address] PCP - General Nurse Practitioner 05/16/23 08/18/23 Soren Cesar CNP [address] [place] [address] PCP - General Family Medicine 08/19/23 Em Uribe 10 [place], [place] [id number] [email or web address] PHCM Community Health Worker 03/19/22 03/24/22 Soren Cesar CNP [address] [place] [address] 7 [place] [address] [email or web address] Insurance Assigned Provider 09/16/24 documented as of this encounter Additional Source Comments The information contained in this document represents components of the legal health record. It is not the complete legal health record.[facility]
--- OUTSIDE RECORDS SUMMARY | 2025-03-27 08:05 | XMS_ITS | Encounter Summary ---
Author Organization [facility] Address [address] [place] [address] [place] [address] Phone Care Team Providers Care Private Inquiry Agent Name Role Phone Katie Gonzalez CNP Primary Care Provider [phone] Em Uribe Unavailable [phone] Pcp, Unknown Primary Care Provider Unavailabl e Kaite Gonzalez CNP Primary Care Provider [phone] Soren Cesar [facility] Primary Care Provider + Soren Cesar CNP Unavailable [phone] Encounter Details Date Type Department Care Team (Late st Contact Info) Description 07/06/2019 Ancillary Orders Virtual Department 30 [place] [address] Kami Mahan MD 33 [facility], [address] [place] [address] [email or web address] Multinodular goiter Social History Tobacco Use Types Packs/Day [...] Description 04/18/2025 9:00 AM EST Office Visit [facility] [address] [place] [address] 3rd Floor, [address] [place] [address] José Calhoun MD [address] [address] documented as of this encounter Visit Diagnoses Diagnosis Multinodular goiter Nontoxic multinodular goiter documented in this encounter Care Teams Private Inquiry Agent Relationship Specialty Start Date End Date Katie Gonzalez CNP 15 [facility], [address] [place] [address] PCP - General Family Medicine 07/06/19 05/04/23 Pcp, Unknown PCP - General 05/05/23 05/15/23 Katie Gonzalez CNP [address] [address] PCP - General Nurse Practitioner 05/16/23 08/18/23 Soern Cesar CNP [address] [place] [address] PCP - General Family Medicine 08/19/23 Em Uribe [address] [place] [address] PHCM Community Health Worker 03/19/22 03/24/22 Soren Cesar CNP [address] [place] [address], [address] [place] [address] [email or web address] Insurance Assigned Provider 09/16/24 documented as of this encounter Additional Source Comments The information contained in this document represents components of the legal health record. It is not the complete legal health record.[facility]
--- OUTSIDE RECORDS SUMMARY | 2025-03-27 08:06 | XMS_ITS ---
Continuity of Care Document (CCD) Created on: March 27, 2025 Tawanna Oseguera External Reference #: [id number] : [id number] Sex: Female Author Organization [facility] Address [address] [facility] [address] [place], [place] Phone [phone] Care Team Providers Care Wet Machine Operator Name Role Phone Katie Gonzalez NP Care Team Information Finishing Inspector Unavailable KAMI MAHAN M.D. Care Team Information Rec eiver Unavailable Katie Gonzalez NP Primary Care Physician Unavaila ble Problems Active Problems Provider Date Essential hypertension Kami Mahan M.D. O nset: 07/06/2019 Pure hypercholesterolemia Festus Robles Onset: 07/06/2019 Hypercalcemia Kami Mahan M.D. Onset: 0 07/06/2019 Metabolic syndrome X Kami Mahan M.D. Ons et: 07/06/2019 Non-toxic multinodular goiter Kami Mahan M.D. Onset: 07/06/2019 Social History Type Date Description Comments Sex Female Sex Unknown Allergies and adverse reactions Active Allergies Criticality Reaction Severity Comments Date Statins Unable to assess criticality 07/06/2019 Medications Active Medications SIG Qnty Indications Ordering Provider Date Aysokskwgs30ca Tablets 1 by mouth every day 90tabs Katie Gonzalez NP Ygjmhwsrmit7ql Tablets Take 1/2 Tablet By Mouth Daily Unknown History Medications Qgoubhdhemixwo77bm Tablets Katie Jonas NP - 07/06/2019
--- OUTSIDE RECORDS SUMMARY | 2025-03-27 08:06 | XMS_ITS | Encounter Summary ---
Author Organization [facility] Address [address] [place] [address] [place] [address] Phone Care Team Providers Care Grinding Machine Operator Automatic Name Role Phone Katie Gonzalez MOBILE EQUIPMENT SERVICER Primary Care Provider [phone] Soren Cesar [facility] Primary Care Provider + Soren Cesar MOBILE EQUIPMENT SERVICER Unavailable [phone] Encounter Details Date Type Department Care Team (Late st Contact Info) Description 05/22/2023 Procedure Pass [facility], Ct Scan - [address] [address] Social History Tobacco Use Types Packs/Day Years [...] high school, GED, job training, learning the [place] Citizen language, technical skills, or developing parenting skills)? [...] Date of Assessment Author No Risk Indicated 05/22/2023 5:35 AM Lucita Hebert, JARRED * [place] Suicide Severity Rating Scale (Screener/Recent Self-Report) Question Answer Date of Assessment Author 1. Wish to be (Past 1 Month) No 023 5:35 AM Lucita Hebert, JARRED 2. Non-Specific Active Suici mark Thoughts (Past 1 Month) No 05/22/2023 5:35 AM Arcelia Hebert RN 6. Suicidal Behavior (Lifetime) No 3 5:35 AM Lucita Hebert RN documented as of this encounter Plan of Treatment Upcoming Encounters Date Type Department Care Team (Late st Contact Info) Description 04/18/2025 9:00 AM EST Office Visit [facility] 22 [facility] 3rd Floor, [address] [place] [address] José Calhoun MD 22 [facility], [address] [address] documented as of this encounter Visit Diagnoses Not on filedocumented in this encounter Additional Health Concerns Assessment Noted Time PHQ-2 Depression Total Score: 0 08/04/19 23 3:35 PM EST documented as of this encounter Care Teams Grinding Machine Operator Automatic Relationship Specialty Start Date End Date Katie Gonzalez CNP 15 [facility], 2nd [place] [address] PCP - General Nurse Practitioner 05/16/23 08/18/23 Soren Cesar CNP [address] [place] [address] PCP - General Family Medicine 08/19/23 Soren Cesar CNP [address] [place] [address] Insurance Assigned Provider 09/16/24 documented as of this encounter Additional Source Comments The information contained in this document represents components of the legal health record. It is not the complete legal health record.[facility]
--- OUTSIDE RECORDS SUMMARY | 2025-03-27 08:07 | XMS_ITS | Encounter Summary ---
Author Organization [facility] Address [address] [place] [address] [place] [address] Phone Care Team Providers Care Pmo Lead Name Role Phone Katie Gonzalez [facility] Primary Care Provider [phone] Soren Cesar [facility] Primary Care Provider + Soren Cesar BRANCH OPERATION EVALUATION MANAGER Unavailable [phone] Encounter Details Date Type Department Care Team (Late st Contact Info) Description 05/30/2023 Procedure Pass [facility] 30 [place] [address] Social History Tobacco Use Types Packs/Day Years [...] high school, GED, job training, learning the Turkish language, technical skills, or developing parenting skills)? [...] Description 04/18/2025 9:00 AM EST Office Visit [facility] [address] [place] [address] 3rd Floor, [address] [place] [address] José Calhoun MD 22 [facility], [address] [place] [address] [email or web address] documented as of this encounter Visit Diagnoses Not on filedocumented in this encounter Additional Health Concerns Assessment Noted Time PHQ-2 Depression Total Score: 0 08/04/19 3:35 PM EST documented as of this encounter Care Teams Pmo Lead Relationship Specialty Start Date End Date Sharita Gonzalezia KARL Moreno 15 [facility], 2nd [place] [address] [email or web address] PCP - General Nurse Practitioner 05/16/23 08/18/23 Soren Cesar CNP [address] [place] [address] 7 [place] [address] PCP - General Family Medicine 08/19/23 Soren Cesar CNP [address] [place] [address] 7 [place] [address] [email or web address] Insurance Assigned Provider 09/16/24 documented as of this encounter Additional Source Comments The information contained in this document represents components of the legal health record. It is not the complete legal health record.[facility]
--- OUTSIDE RECORDS SUMMARY | 2025-03-27 08:07 | XMS_ITS | Encounter Summary ---
Author Organization [facility] Address [address] [facility] [address] [place] [address] Phone Care Team Providers Care Insecticide Maker Name Role Phone Soren Cesar CNP Primary Care Provider + Soren Cesar SLEEP SCIENTIST Unavailable [phone] Encounter Details Date Type Department Care Team (Latest Contact Info) Description 02/21/2024 Transcribe Orders Virtual Department 30 [place] [address] Soren Cesar CNP [address] [facility], [address] [place], [place] [id number] [email or web address] Breast screening (Primary Dx) Social History Tobacco Use Types Packs/Day Years Used Date Smoking Tobacco: Never Smokeless Tobacco: Never Alcohol Use Standard Drinks/Week Comments Not Currently [...] Description 04/18/2025 9:00 AM EST Office Visit [facility] 22 [facility] 3rd Floor, [address] [place] [address] José Calhoun MD 22 [facility], [address] [place] [address] documented as of this encounter Visit Diagnoses Diagnosis Breast screening- Primary Breast screening, unspecified documented in this encounter Additional Health Concerns Assessment Noted Time PHQ-2 Depression Total Score: 2 08/18/19 24 9:31 AM EST documented as of this encounter Care Teams Insecticide Maker Relationship Specialty Start Date End Date Soren Cesar CNP [address] [place] [address] 7 [place] [address] PCP - General Family Medicine 08/19/23 Soren Cesar CNP [address] [place] [address] 7 [place] [address] Insurance Assigned Provider 09/16/24 documented as of this encounter Additional Source Comments The information contained in this document represents components of the legal health record. It is not the complete legal health record.[facility]
--- OUTSIDE RECORDS SUMMARY | 2025-03-27 08:07 | XMS_ITS | Encounter Summary ---
Author Organization [facility] Address [address] [place] [address] [place] [address] Phone Care Team Providers Care Vending Machine Servicer Name Role Phone Katie Gonzalez [facility] Primary Care Provider [phone] Soren Cesar [facility] Primary Care Provider + Soren Cesar [facility] Unavailable [phone] Encounter Details Date Type Department Care Team (Late st Contact Info) Description 05/22/2023 Procedure Pass [place] Admitting Dept - Virtual Department [address] [place] [address] Social History Tobacco Use Types Packs/Day Years [...] high school, GED, job training, learning the Guyanese language, technical skills, or developing parenting skills)? [...] 05/22/2023 5:35 AM Lucita Hebert, JARRED * [place] Suicide Severity Rating Scale (Screener/Recent Self-Report) Question Answer Date of Assessment Author 1. Wish to be (Past 1 Month) No 023 5:35 AM Lucita Hebert, JARRED 2. Non-Specific Active Suici mark Thoughts (Past 1 Month) No 05/22/2023 5:35 AM Arcelia Hebert RN 6. Suicidal Behavior (Lifetime) No 3 5:35 AM Lucita Hebert, JARRED documented as of this encounter Plan of Treatment Upcoming Encounters Date Type Department Care Team (Late st Contact Info) Description 04/18/2025 9:00 AM EST Office Visit [facility] 22 [facility] 3rd Floor, [address] [place] [address] José Calhoun MD 22 [facility], [address] [address] [email or web address] documented as of this encounter Visit Diagnoses Not on filedocumented in this encounter Additional Health Concerns Assessment Noted Time PHQ-2 Depression Total Score: 0 08/04/19 23 3:35 PM EST documented as of this encounter Care Teams Vending Machine Servicer Relationship Specialty Start Date End Date Katie Gonzalez CNP [address] [facility], 2nd [place] [address] PCP - General Nurse Practitioner 05/16/23 08/18/23 Soren Cesar CNP [address] [place] [address] PCP - General Family Medicine 08/19/23 Soren Cesar CNP [address] [place] [address] 7 [place] [address] Insurance Assigned Provider 09/16/24 documented as of this encounter Additional Source Comments The information contained in this document represents components of the legal health record. It is not the complete legal health record.[facility]
--- OUTSIDE RECORDS SUMMARY | 2025-03-27 08:07 | XMS_ITS | Encounter Summary ---
Author Organization [facility] Address [address] [address] Phone Care Team Providers Care Drift Miner Name Role Phone Katie Gonzalez CNP Primary Care Provider [phone]- [phone] Katie Gonzalez CNP Primary Care Provider +[phone]- [phone] Em Uribe Unavailable [phone] Pcp, Unknown Primary Care Provider Unavailabl e Katie Gonzalez CNP Primary Care Provider +[phone]- [phone] Soren Cesar [facility] Primary Care Provider + Soren Cesar AUTOMOBILE APPRAISER Unavailable [phone] Encounter Details Date Type Department Care Team (Latest Contact Info) Description 06/01/2019 Transcribe Orders Virtual Department 30 [place] [address] Dennis Musa MD 31 [place] [address] [email or web address] Non-toxic multinodular goiter (Primary Dx) Social History Tobacco [...] Description 04/18/2025 9:00 AM EST Office Visit [facility] [address] [place] [address] 3rd Floor, [address] [place] [address] José Calhoun MD [address] [place] [address] [email or web address] documented as of this encounter Visit Diagnoses Diagnosis Non-toxic multinodular goiter- Primary Nontoxic multinodular goiter documented in this encounter Care Teams Drift Miner Relationship Specialty Start Date End Date Katie Gonzalez CNP [address] [address] PCP - General 03/31/17 07/05/19 Katie Gonzalez CNP [address] [address] PCP - General Family Medicine 07/06/19 05/04/23 Pcp, Unknown PCP - General 05/05/23 05/15/23 Katie Gonzalez CNP [address] [address] PCP - General Nurse Practitioner 05/16/23 08/18/23 Soren Cesar CNP [address] [place] [address] 7 [place] [address] [email or web address] PCP - General Family Medicine 08/19/23 Em Uribe 10 [place] [address] [email or web address] PHCM Community Health Worker 03/19/22 03/24/22 Soren Cesar CNP [address] [place] [address] [address] [place] [address] [email or web address] Insurance Assigned Provider 09/16/24 documented as of this encounter Additional Source Comments The information contained in this document represents components of the legal health record. It is not the complete legal health record.[facility]
--- OUTSIDE RECORDS SUMMARY | 2025-03-27 08:08 | XMS_ITS | Encounter Summary ---
Author Organization [facility] Address [address] [place] [address] [place] [address] Phone Care Team Providers Care Insurance Adjuster Name Role Phone Katie Gonzalez VALIDATION SPECIALIST Primary Care Provider [phone] Soren Cesar [facility] Primary Care Provider + Soren Ceasr VALIDATION SPECIALIST Unavailable [phone] Encounter Details Date Type Department Care Team (Late st Contact Info) Description 05/31/2023 Procedure Pass [facility], Ct Scan - [address] [address] Social History Tobacco Use Types Packs/Day Years Used Date Smoking Tobacco: Never Smokeless Tobacco: Never Alcohol Use Standard Drinks/Week Comments Yes 1 (1 standard drink = 0.6 oz pure alcohol) 1 drink per week-2 glasses of wine Home Health Assessment: Transportation Answer Date Recorded Lack of Transportation (Medical) No 06/04/2023 Lack of Transportation (Non-Medical) No 06/04/2023 Patient Unable or Declines to Respond No 06/04/2023 Child or Family Care Answer Date Record ed Do you have problems with on e of the following making it difficult for you to work, study, or receive health care? No 06/18/2021 Education Answer Date Recorded Are you interested in help w ith more adult education (for example, completing high school, GED, job training, learning the Finnish language, technical skills, or developing parenting skills)? [...] Description 04/18/2025 9:00 AM EST Office Visit [facility] [address] [place] [address] 3rd Floor, [address] [place] [address] José Calhoun MD 22 [facility], [address] [place] [address] documented as of this encounter Visit Diagnoses Not on filedocumented in this encounter Additional Health Concerns Assessment Noted Time PHQ-2 Depression Total Score: 0 08/04/19 23 3:35 PM EST documented as of this encounter Care Teams Insurance Adjuster Relationship Specialty Start Date End Date Katie Gonzalez CNP 15 [facility], 2nd [place] [address] [email or web address] PCP - General Nurse Practitioner 05/16/23 08/18/23 Soren Cesar CNP [address] [place] [address] 7 [place] [address] PCP - General Family Medicine 08/19/23 Soren Cesar CNP [address] [place] [address] 7 [place] [address] [email or web address] Insurance Assigned Provider 09/16/24 documented as of this encounter Additional Source Comments The information contained in this document represents components of the legal health record. It is not the complete legal health record.[facility]
--- OUTSIDE RECORDS SUMMARY | 2025-03-27 08:08 | XMS_ITS | Encounter Summary ---
Author Organization [facility] Address [address] [place] [address] [place] [address] Phone Care Team Providers Care Zipper Measurer Name Role Phone Katie Gonzalez [facility] Primary Care Provider [phone]- [phone] Soren Cesar [facility] Primary Care Provider + Soren Cesar TEACHER COUNSELOR Unavailable [phone] Encounter Details Date Type Department Care Team (Late st Contact Info) Description 05/31/2023 Procedure Pass [facility] Cardiovascular And Interventional Radiology 30 [place] [address] Social History Tobacco Use Types Packs/Day Years [...] high school, GED, job training, learning the Moroccan language, technical skills, or developing parenting skills)? [...] Description 04/18/2025 9:00 AM EST Office Visit [facility] [address] [place] [address] 3rd Floor, [address] [place] [address] José Calhoun MD 22 [facility], [address] [place] [address] documented as of this encounter Visit Diagnoses Not on filedocumented in this encounter Additional Health Concerns Assessment Noted Time PHQ-2 Depression Total Score: 0 08/04/19 23 3:35 PM EST documented as of this encounter Care Teams Zipper Measurer Relationship Specialty Start Date End Date Katie Gonzalez CNP 15 [facility], 2nd [place] [address] [email or web address] PCP - General Nurse Practitioner 05/16/23 08/18/23 Soren Cesar CNP [address] [place] [address], [facility] 7 [place] [address] PCP - General Family Medicine 08/19/23 Soren Cesar CNP [address] [place] [address], [facility] 7 [place] [address] [email or web address] Insurance Assigned Provider 09/16/24 documented as of this encounter Additional Source Comments The information contained in this document represents components of the legal health record. It is not the complete legal health record.[facility]
== END 2025-03-27 08:00 | disposition home or self-care (01) ==
LOC: HO.SH 07:59
PROVIDERS: Visit Provider Nurse Practitioner Family
DX: Z01.118 Encounter for examination of ears and hearing with other abnormal findings (principal); H90.3 Sensorineural hearing loss, bilateral
CPT/HCPCS: 92552; 92556

== ENCOUNTER 2025-03-27 08:57 | Outpatient (REF) | payer SELFPAY ==
--- NOTE | 2025-03-27 14:48 | MHC.AU.HA1 ---
Hearing Aid Evaluation Date of Visit: 03/27/25 Historical Information: Description of Hearing: Moderate sensorineural hearing loss, bilaterally Current personal amplification information: Phonak Virto [id number] CICs Summary: Long-time FONG user, previously wore Phonak Virto [id number] CICs. Lost one last year. Subsequently fit with a pair of ReSound RE 961-DRWC hearing aids with domes donated to her by her sister. Not hearing as well with the RITEs. Ready to pursue new CIC HAs. Discussed pros and cons of different styles and technology levels. Tawanna opted for smallest custom device possible, titanium for durability in highest technology level. Understands still will have size 10 battery and no bluetooth. Impressions taken, bilaterally, without incident - Sent to [facility]. Hearing Aid Prescription: Based on the individual?s shared listening needs, communication environments, dexterity, desire for connectivity, and personal preferences, the following prescription for amplification has been made: Right ear: Make, Model, Color: Phonak Virto P86-Jnabhrsm CIC Color: Titanium Zayas Battery Size: 10 Left ear: Left ear prescription to be same as Right Hearing Aid above: Make, Model, Color: Phonak Virto Q45-Ejcmskpc CIC Color: Titanium Zayas Battery Size: 10 Plan of Care: Patient wishes to purchase hearing aids as prescribed Action Taken/Action Needed: Hearing Instrument Fitting to be scheduled when materials arrive Primary Diagnosis: H90.3 Bilateral Sensorineural Hearing Loss Signature: Provider: Akil Knapp, [facility]
== END 2025-03-27 08:58 | disposition home or self-care (01) ==
LOC: HO.HAP 08:57
PROVIDERS: Visit Provider Nurse Practitioner Family
DX: Z46.1 Encounter for fitting and adjustment of hearing aid (principal); H90.3 Sensorineural hearing loss, bilateral
CPT/HCPCS: 92590

== ENCOUNTER 2025-05-08 09:28 | Outpatient (REF) | payer SELFPAY ==
--- OUTSIDE RECORDS SUMMARY | 2025-05-08 10:33 | XMS_ITS | Encounter Summary ---
Author Organization [facility] Address [address] [place] [address] [place] [address] Phone Care Team Providers Care Tour Operator Name Role Phone Katie Gonzalez CNP Primary Care Provider [phone] Em Uribe Unavailable [phone] Pcp, Unknown Primary Care Provider Unavailabl e Katie Gonzalez CNP Primary Care Provider [phone]- [phone] Soren Cesar FINANCIAL SERVICES PROFESSIONAL Primary Care Provider + Soren Cesar CNP Unavailable [phone] Encounter Details Date Type Department Care Team (Late st Contact Info) Description 06/18/2021 Procedure Pass [facility] - [address] [place] [address] Social History Tobacco Use Types Packs/Day Years [...] high school, GED, job training, learning the Vietnamese language, technical skills, or developing parenting skills)? [...] Care Team (Late st Contact Info) Description 04/21/2026 12:40 PM EST Office Visit [facility] [address] [place] [address] 3rd Floor, [address] [place] [address] José Calhoun MD 22 [facility], [address] [address] [email or web address] documented as of this encounter Visit Diagnoses Not on filedocumented in this encounter Care Teams Tour Operator Relationship Specialty Start Date End Date Katie Gonzalez CNP [address] [address] PCP - General Family Medicine 07/06/19 05/04/23 Pcp, Unknown PCP - General 05/05/23 05/15/23 Katie Gonzalez CNP [address] [address] PCP - General Nurse Practitioner 05/16/23 08/18/23 Soren Cesar, KARL [address] [place] [address] 7 [place] [address] PCP - General Family Medicine 08/19/23 Em Uribe 10 [place] [address] PHCM Community Health Worker 03/19/22 03/24/22 Soren Cesar, KARL [address] [place] [address] 7 [place] [address] Insurance Assigned Provider 09/16/24 documented as of this encounter Additional Source Comments The information contained in this document represents components of the legal health record. It is not the complete legal health record.[facility]
--- OUTSIDE RECORDS SUMMARY | 2025-05-08 10:33 | XMS_ITS | Encounter Summary ---
Author Organization [facility] Address [address] [place] [address] [place] [address] Phone Care Team Providers Care Tooth Cutter Pinion Name Role Phone Katie Gonzalez [facility] Primary Care Provider [phone] Soren Cesar [facility] Primary Care Provider + Soren Cesar [facility] Unavailable [phone] Encounter Details Date Type Department Care Team (Late st Contact Info) Description 06/27/2023 Procedure Pass [facility] Cardiovascular And Interventional Radiology 30 [place] [address] Social History Tobacco Use Types Packs/Day Years [...] Description 04/21/2026 12:40 PM EST Office Visit [facility] 22 [facility] 3rd Floor, [address] [place] [address] José Calhoun MD 22 [facility], [address] [place] [address] documented as of this encounter Visit Diagnoses Not on filedocumented in this encounter Additional Health Concerns Assessment Noted Time PHQ-2 Depression Total Score: 0 08/04/19 23 3:35 PM EST documented as of this encounter Care Teams Tooth Cutter Pinion Relationship Specialty Start Date End Date Katie Gonzalez CNP 15 [facility], 2nd [place] [address] [email or web address] PCP - General Nurse Practitioner 05/16/23 08/18/23 Soren Cesar CNP 234 [facility], [facility] 7 [place] [address] PCP - General Family Medicine 08/19/23 Soren Cesar CNP [address] [place] [address], [facility] 7 [place] [address] [email or web address] Insurance Assigned Provider 09/16/24 documented as of this encounter Additional Source Comments The information contained in this document represents components of the legal health record. It is not the complete legal health record.[facility]
--- OUTSIDE RECORDS SUMMARY | 2025-05-08 10:33 | XMS_ITS | Encounter Summary ---
Author Organization [facility] Address [address] [place] [address] Phone Care Team Providers Care Unishear Operator Name Role Phone Katie Gonzalez CNP Primary Care Provider [phone] Katie Gonzalez CNP Primary Care Provider [phone]- [phone] Em Uribe Unavailable Pcp, Unknown Primary Care Provider Unavailabl e Katie Gonzalez CNP Primary Care Provider [phone] Soren Cesar [facility] Primary Care Provider + Soren Cesar [facility] Unavailable [phone] Encounter Details Date Type Department Care Team (Late st Contact Info) Description 01/27/2018 Ancillary Orders [facility],Outside Imaging 30 [place] [address] System, Provider Not In, [facility] [address] [address] Social History Tobacco Use Types Packs/Day Years [...] Description 04/21/2026 12:40 PM EST Office Visit [facility] 22 [facility] 3rd Floor, [address] [place] [address] José Calhoun MD 22 [facility], [address] [address] documented as of this encounter Results * [...] on filedocumented in this encounter Care Teams Unishear Operator Relationship Specialty Start Date End Date Katie Gonzalez CNP [address] [address] PCP - General 03/31/17 07/05/19 Katie Gonzalez CNP [address] [address] PCP - General Family Medicine 07/06/19 05/04/23 Pcp, Unknown PCP - General 05/05/23 05/15/23 Katie Gonzalez CNP [address] [address] PCP - General Nurse Practitioner 05/16/23 08/18/23 Soren Cesar CNP [address] [place] [address] 7 [place] [address] [email or web address] PCP - General Family Medicine 08/19/23 Em Uribe 10 [place] [address] PHCM Community Health Worker 03/19/22 03/24/22 Soren Cesar CNP [address] [place] [address] 7 [place] [address] [email or web address] Insurance Assigned Provider 09/16/24 documented as of this encounter Additional Source Comments The information contained in this document represents components of the legal health record. It is not the complete legal health record.[facility]
--- OUTSIDE RECORDS SUMMARY | 2025-05-08 10:33 | XMS_ITS | Encounter Summary ---
Author Organization [facility] Address [address] [place] [address] [place] [address] Phone Care Team Providers Care Parcel Post Truck Driver Name Role Phone Katie Gonzalez IN FLIGHT REFUELING MANAGER Primary Care Provider [phone] Soren Cesar [facility] Primary Care Provider + Soren Cesar IN FLIGHT REFUELING MANAGER Unavailable [phone] Encounter Details Date Type Department Care Team (Late st Contact Info) Description 06/24/2023 Procedure Pass [facility], Ct Scan - [address] [address] Social History Tobacco Use Types Packs/Day Years [...] Description 04/21/2026 12:40 PM EST Office Visit [facility] [address] [place] [address] 3rd Floor, [address] [place] [address] José Calhoun MD 22 [facility], [address] [place] [address] documented as of this encounter Visit Diagnoses Not on filedocumented in this encounter Additional Health Concerns Assessment Noted Time PHQ-2 Depression Total Score: 0 08/04/19 23 3:35 PM EST documented as of this encounter Care Teams Parcel Post Truck Driver Relationship Specialty Start Date End Date Katie Gonzalez CNP 15 [facility], 2nd [place] [address] [email or web address] PCP - General Nurse Practitioner 05/16/23 08/18/23 Soren Cesar CNP [address] [place] [address] 7 [place] [address] PCP - General Family Medicine 08/19/23 Soren Cesar CNP [address] [place] [address] 7 [place] [address] [email or web address] Insurance Assigned Provider 09/16/24 documented as of this encounter Additional Source Comments The information contained in this document represents components of the legal health record. It is not the complete legal health record.[facility]
--- OUTSIDE RECORDS SUMMARY | 2025-05-08 10:34 | XMS_ITS | Encounter Summary ---
Author Organization [facility] Address [address] [place] [address] [place] [address] Phone Care Team Providers Care Ladies' Locker Room Attendant Name Role Phone Katie Gonzalez READING TUTOR Primary Care Provider [phone] Soren Cesar [facility] Primary Care Provider + Soren Cesar READING TUTOR Unavailable [phone] Encounter Details Date Type Department Care Team (Late st Contact Info) Description 06/27/2023 Procedure Pass [facility], Ct Scan - [address] [address] Social History Tobacco Use Types Packs/Day Years [...] Description 04/21/2026 12:40 PM EST Office Visit [facility] [address] [place] [address] 3rd Floor, [address] [place] [address] José Calhoun MD 22 [facility], [address] [place] [address] documented as of this encounter Visit Diagnoses Not on filedocumented in this encounter Additional Health Concerns Assessment Noted Time PHQ-2 Depression Total Score: 0 08/04/19 23 3:35 PM EST documented as of this encounter Care Teams Ladies' Locker Room Attendant Relationship Specialty Start Date End Date Katie Gonzalez CNP 15 [facility], 2nd [place] [address] [email or web address] PCP - General Nurse Practitioner 05/16/23 08/18/23 Soren Cesar CNP [address] [place] [address] 7 [place] [address] PCP - General Family Medicine 08/19/23 Soren Cesar CNP [address] [place] [address] 7 [place] [address] [email or web address] Insurance Assigned Provider 09/16/24 documented as of this encounter Additional Source Comments The information contained in this document represents components of the legal health record. It is not the complete legal health record.[facility]
--- OUTSIDE RECORDS SUMMARY | 2025-05-08 10:34 | XMS_ITS | Encounter Summary ---
Author Organization [facility] Address [address] [place] [address] [place] [address] Phone Care Team Providers Care Blender Machine Operator Name Role Phone Katie Gonzalez DIGITAL PRINT OPERATOR Primary Care Provider [phone] Soren Cesar [facility] Primary Care Provider + Soren Cesar DIGITAL PRINT OPERATOR Unavailable [phone] Encounter Details Date Type Department Care Team (Late st Contact Info) Description 05/23/2023 Procedure Pass [facility], Ct Scan - [address] [address] Social History Tobacco Use Types Packs/Day Years [...] high school, GED, job training, learning the Monegasque language, technical skills, or developing parenting skills)? [...] Description 04/21/2026 12:40 PM EST Office Visit [facility] [address] [place] [address] 3rd Floor, [address] [place] [address] José Calhoun MD 22 [facility], [address] [place] [address] [email or web address] documented as of this encounter Visit Diagnoses Not on filedocumented in this encounter Additional Health Concerns Assessment Noted Time PHQ-2 Depression Total Score: 0 08/04/19 3:35 PM EST documented as of this encounter Care Teams Blender Machine Operator Relationship Specialty Start Date End Date CarlosKatie KARL Moreno 15 [facility], 2nd [place] [address] PCP - General Nurse Practitioner 05/16/23 08/18/23 Soren Cesar CNP [address] [place] [address] PCP - General Family Medicine 08/19/23 Soren Cesar CNP [address] [place] [address] Insurance Assigned Provider 09/16/24 documented as of this encounter Additional Source Comments The information contained in this document represents components of the legal health record. It is not the complete legal health record.[facility]
--- OUTSIDE RECORDS SUMMARY | 2025-05-08 10:34 | XMS_ITS | Encounter Summary ---
Author Organization [facility] Address [address] [address] Phone Care Team Providers Care Global Ceo Name Role Phone Katie Gonzalez CNP Primary Care Provider [phone] Katie Gonzalez CNP Primary Care Provider [phone]- [phone] Em Uribe Unavailable [phone] Pcp, Unknown Primary Care Provider Unavailabl e Katie Gonzalez CNP Primary Care Provider [phone] Soren Cesar [facility] Primary Care Provider + Soren Cesar [facility] Unavailable Encounter Details Date Type Department Care Team (Latest Contact Info) Description 06/01/2019 Transcribe Orders Virtual Department 30 [place] [address] Dennis Musa MD 31 [place] [address] [email or web address] Non-toxic multinodular goiter (Primary Dx) Social History [...] Description 04/21/2026 12:40 PM EST Office Visit [facility] [address] [place] [address] 3rd Floor, [address] [place] [address] José Calhoun MD [address] [place] [address] [email or web address] documented as of this encounter Visit Diagnoses Diagnosis Non-toxic multinodular goiter- Primary Nontoxic multinodular goiter documented in this encounter Care Teams Global Ceo Relationship Specialty Start Date End Date Katie Gonzalez CNP [address] [address] PCP - General 03/31/17 07/05/19 Katie Gonzalez CNP [address] [address] PCP - General Family Medicine 07/06/19 05/04/23 Pcp, Unknown PCP - General 05/05/23 05/15/23 Katie Gonzalez CNP [address] [address] PCP - General Nurse Practitioner 05/16/23 08/18/23 Soren Cesar CNP [address] [place] [address] 7 [place] [address] [email or web address] PCP - General Family Medicine 08/19/23 Em Uribe 10 [place] [address] [email or web address] PHCM Community Health Worker 03/19/22 03/24/22 Soren Cesar CNP [address] [place] [address] [address] [place] [address] [email or web address] Insurance Assigned Provider 09/16/24 documented as of this encounter Additional Source Comments The information contained in this document represents components of the legal health record. It is not the complete legal health record.[facility]
--- OUTSIDE RECORDS SUMMARY | 2025-05-08 10:34 | XMS_ITS | Encounter Summary ---
Author Organization [facility] Address [address] [facility] [address] [place] [address] Phone Care Team Providers Care Costumed Character Name Role Phone Soren Cesar CNP Primary Care Provider + Soren Cesar RUBBER WORKER Unavailable [phone] Encounter Details Date Type Department Care Team (Latest Contact Info) Description 02/21/2024 Transcribe Orders Virtual Department 30 [place] [address] Soren Cesar CNP [address] [facility], [address] [place], [place] [id number] [email or web address] Breast screening (Primary Dx) Social History Tobacco [...] Description 04/21/2026 12:40 PM EST Office Visit [facility] [address] [facility] 3rd Floor, [address] [place] [address] José Calhoun MD [address] [facility], [address] [place] [address] documented as of this encounter Visit Diagnoses Diagnosis Breast screening- Primary Breast screening, unspecified documented in this encounter Additional Health Concerns Assessment Noted Time PHQ-2 Depression Total Score: 2 08/18/19 24 9:31 AM EST documented as of this encounter Care Teams Costumed Character Relationship Specialty Start Date End Date Soren Cesar CNP [address] [place] [address] 7 [place] [address] PCP - General Family Medicine 08/19/23 Soren Cesar CNP [address] [place] [address] 7 [place] [address] Insurance Assigned Provider 09/16/24 documented as of this encounter Additional Source Comments The information contained in this document represents components of the legal health record. It is not the complete legal health record.[facility]
--- OUTSIDE RECORDS SUMMARY | 2025-05-08 10:34 | XMS_ITS | Encounter Summary ---
Author Organization [facility] Address [address] [place] [address] [place] [address] Phone Care Team Providers Care Curriculum Writer Name Role Phone Katie Gonzalez CNP Primary Care Provider [phone] Em Uribe Unavailable [phone] Pcp, Unknown Primary Care Provider Unavailabl e Katie Gonzalez CNP Primary Care Provider [phone] Soren Cesar [facility] Primary Care Provider + Soren Cesar CNP Unavailable [phone] Encounter Details Date Type Department Care Team (Late st Contact Info) Description 07/06/2019 Ancillary Orders Virtual Department 30 [place] [address] Kami Mahan MD [address] [facility], [address] [place] [address] [email or web address] Multinodular goiter; Nontoxic multinodular goiter Social History [...] Description 04/21/2026 12:40 PM EST Office Visit [facility] [address] [facility] 3rd Floor, [address] [place], [place] [phone] José Calhoun MD [address] [facility], [address] [place], [place] [id number] [email or web address] documented as of this encounter Results * US Thyroid Gland (07/13/2019 1:26 PM EST) Anatomical Region Laterality Modality Neck, Head, Chest Ultrasound 07/13/2019 2:02 PM EST Impressions 07/13/2019 2:20 PM EST Multinodular thyroid without clearly worrisome nodules currently. None demand follow-up but given the increase in size of some, a follow-up study in a year may be appropriate. POS - [id number] Edited by: Mckenzie Suresh on 07/13/2019 2:13 [...] a year may be appropriate. POS - [id number] Edited by: Mckenzie Suresh on 07/13/2019 2:13 PM us Kami Mahan MD [facility] TH[facility] Final Result documented in this encounter Visit Diagnoses Diagnosis Multinodular goiter Nontoxic multinodular goiter Nontoxic multinodular goiter Multinodular goiter Nontoxic multinodular goiter Nontoxic multinodular goiter documented in this encounter Care Teams Curriculum Writer Relationship Specialty Start Date End Date Katie Gonzalez CNP [address] [address] PCP - General Family Medicine 07/06/19 05/04/23 Pcp, Unknown PCP - General 05/05/23 05/15/23 Katie Gonzalez CNP [address] [address] PCP - General Nurse Practitioner 05/16/23 08/18/23 Soren Cesar CNP [address] [place] [address] PCP - General Family Medicine 08/19/23 Em Uribe [address] [place] [address] PHCM Community Health Worker 03/19/22 03/24/22 Soren Cesar CNP [address] [place] [address] Insurance Assigned Provider 09/16/24 documented as of this encounter Additional Source Comments The information contained in this document represents components of the legal health record. It is not the complete legal health record.[facility]
--- OUTSIDE RECORDS SUMMARY | 2025-05-08 10:34 | XMS_ITS | Encounter Summary ---
Author Organization [facility] Address [address] [place] [address] [place] [address] Phone Care Team Providers Care Drier Attendant Name Role Phone Katie Gonzalez [facility] Primary Care Provider [phone] Soren Cesar [facility] Primary Care Provider + Soren Cesar CEO ZIFF DAVIS Unavailable [phone] Encounter Details Date Type Department Care Team (Late st Contact Info) Description 05/30/2023 Procedure Pass [facility] Cardiovascular And Interventional Radiology 30 [place] [address] Social History Tobacco Use Types Packs/Day Years [...] high school, GED, job training, learning the Portuguese language, technical skills, or developing parenting skills)? [...] Description 04/21/2026 12:40 PM EST Office Visit [facility] [address] [place] [address] 3rd Floor, [address] [place] [address] José Calhoun MD [address] [facility], [address] [place] [address] [email or web address] documented as of this encounter Visit Diagnoses Not on filedocumented in this encounter Additional Health Concerns Assessment Noted Time PHQ-2 Depression Total Score: 0 08/04/19 3:35 PM EST documented as of this encounter Care Teams Drier Attendant Relationship Specialty Start Date End Date Sharita Gonzalezia KARL Moreno [address] [facility], 2nd [place] [address] [email or web address] PCP - General Nurse Practitioner 05/16/23 08/18/23 Soren Cesar CNP [address] [place] [address] 7 [place] [address] PCP - General Family Medicine 08/19/23 Sroen Cesar CNP [address] [place] [address] 7 [place] [address] [email or web address] Insurance Assigned Provider 09/16/24 documented as of this encounter Additional Source Comments The information contained in this document represents components of the legal health record. It is not the complete legal health record.[facility]
--- OUTSIDE RECORDS SUMMARY | 2025-05-08 10:34 | XMS_ITS | Encounter Summary ---
Author Organization [facility] Address [address] [place] [address] [place] [address] Phone Care Team Providers Care Rate Supervisor Name Role Phone Katie Gonzalez EXERCISE TEACHER Primary Care Provider [phone] Soren Cesar [facility] Primary Care Provider + Soren Cesar EXERCISE TEACHER Unavailable [phone] Encounter Details Date Type Department Care Team (Late st Contact Info) Description 05/29/2023 Procedure Pass [facility], Ct Scan - [address] [address] Social History Tobacco Use Types Packs/Day Years [...] high school, GED, job training, learning the Ethiopian language, technical skills, or developing parenting skills)? [...] 9:30 PM EST Monika Barros RN * [place] Suicide Severity Rating Scale (Screener/Recent Self-Report) Question [...] Description 04/21/2026 12:40 PM EST Office Visit [facility] [address] [facility] 3rd Floor, [address] [place] [address] José Calhoun MD [address] [facility], [address] [address] documented as of this encounter Visit Diagnoses Not on filedocumented in this encounter Additional Health Concerns Assessment Noted Time PHQ-2 Depression Total Score: 0 08/04/19 3:35 PM EST documented as of this encounter Care Teams Rate Supervisor Relationship Specialty Start Date End Date Katie Gonzalez CNP [address] [facility], 2nd [place] [address] PCP - General Nurse Practitioner 05/16/23 08/18/23 Soren Cesar CNP [address] [place] [address] 7 [place] [address] PCP - General Family Medicine 08/19/23 Soren Cesar CNP [address] [place] [address] 7 [place] [address] Insurance Assigned Provider 09/16/24 documented as of this encounter Additional Source Comments The information contained in this document represents components of the legal health record. It is not the complete legal health record.[facility]
--- OUTSIDE RECORDS SUMMARY | 2025-05-08 10:34 | XMS_ITS | Encounter Summary ---
Author Organization [facility] Address [address] [place] [address] [place] [address] Phone Care Team Providers Care Iuss Master Analyst Name Role Phone Katie Gonzalez [facility] Primary Care Provider [phone] Soren Cesar [facility] Primary Care Provider + Soren Cesar SORT SUPERVISOR Unavailable [phone] Encounter Details Date Type Department Care Team (Late st Contact Info) Description 05/31/2023 Procedure Pass [facility] Cardiovascular And Interventional Radiology 30 [place] [address] Social History Tobacco Use Types Packs/Day Years [...] high school, GED, job training, learning the Wallisian language, technical skills, or developing parenting skills)? [...] Description 04/21/2026 12:40 PM EST Office Visit [facility] [address] [place] [address] 3rd Floor, [address] [place] [address] José Calhoun MD [address] [facility], [address] [place] [address] documented as of this encounter Visit Diagnoses Not on filedocumented in this encounter Additional Health Concerns Assessment Noted Time PHQ-2 Depression Total Score: 0 08/04/19 23 3:35 PM EST documented as of this encounter Care Teams Iuss Master Analyst Relationship Specialty Start Date End Date Katie Gonzalez CNP [address] [facility], 2nd [place] [address] [email or web address] PCP - General Nurse Practitioner 05/16/23 08/18/23 Soren Cesar CNP [address] [place] [address], [facility] 7 [place] [address] PCP - General Family Medicine 08/19/23 Soren Cesar CNP [address] [place] [address], [facility] 7 [place] [address] [email or web address] Insurance Assigned Provider 09/16/24 documented as of this encounter Additional Source Comments The information contained in this document represents components of the legal health record. It is not the complete legal health record.[facility]
--- OUTSIDE RECORDS SUMMARY | 2025-05-08 10:34 | XMS_ITS | Encounter Summary ---
Author Organization [facility] Address [address] [place] [address] [address] [place] [address] Phone Care Team Providers Care First Aid Instructor Name Role Phone Soren Cesar CNP Primary Care Provider + Soren Cesar BOTTLING EQUIPMENT SALES REPRESENTATIVE Unavailable [phone] Encounter Details Date Type Department Care Team (Late st Contact Info) Description 04/12/2025 Telephone [facility] [address] [place] [address] Soren Cesar, KARL [address] [facility], [address] [place] [address] [email or web address] Social History Tobacco Use Types Packs/Day Years [...] on file documented as of this encounter Progress Notes * Paige Andrea - 04/12/2025 11:47 AM EDT ERR documented in this encounter Plan of Treatment Upcoming Encounters Date Type Department Care Team (Late st Contact Info) Description 04/21/2026 12:40 PM EST Office Visit [facility] [address] [place] [address] 3rd Floor, [address] [place] [id number] José Calhoun MD 22 [facility], [address] [id number] documented as of this encounter Visit Diagnoses Not on filedocumented in this encounter Additional Health Concerns Assessment Noted Time PHQ-2 Depression Total Score: 2 08/18/19 24 9:31 AM EST documented as of this encounter Care Teams First Aid Instructor Relationship Specialty Start Date End Date Soren Cesar CNP [address] [place] [address] PCP - General Family Medicine 08/19/23 Soren Cesar CNP [address] [place] [address] Insurance Assigned Provider 09/16/24 documented as of this encounter Additional Source Comments The information contained in this document represents components of the legal health record. It is not the complete legal health record.[facility]
--- OUTSIDE RECORDS SUMMARY | 2025-05-08 10:34 | XMS_ITS | Clinical Summary ---
Author Organization [facility] Address [address] [place] [address] Phone Care Team Providers Care Repair Table Operator Name Role Phone Soren Galindo PE TEACHER Primary Care Provider + Soren Galindo PE TEACHER Unavailable [phone] Allergies Active Allergy Reactions Criticality Noted Date Comments Mebedzm-Hzh-Ahz Reductase Inhibitors 05/12/2017 Liver enzymes get very [...] every 6 (six) hours as needed. 0 05/27/20 23 Active metoprolol succinate (TOPROL-XL) 50 MG 24 hr tablet TAKE 1 TABLET BY MOUTH EVERY DAY 90 tablet 3 08/23/19 25 Active lisinopril (PRINIVIL,ZESTRIL) 30 MG tabletIndications: Essential hypertension,Mixed hyperlipidemia TAKE 1 TABLET BY MOUTH EVERY DAY 90 tablet 3 02/22/20 25 Active ezetimibe (ZETIA) 10 mg tabletIndications: Essential hypertension,Mixed hyperlipidemia TAKE 1 TABLET BY MOUTH EVERY DAY 90 tablet 3 02/22/20 25 Active ELIQUIS 5 mg tablet TAKE 1 TABLET (5 MG TOTAL) BY MOUTH TWICE A DAY TO PREVENT BLOOD CLOT IN CHRONIC ATRIAL FIBRILLATION 60 tablet 11 03/14/20 25 Active hydrOXYzine (ATARAX) 25 MG tablet Take 1 tablet (25 mg total) by mouth 3 (three) times a day as needed for itching. 30 tablet 11/28/19 24 025 Discontin ued(No longer taking) finasteride (PROSCAR) 5 mg tabletIndications: Androgenic alopecia TAKE 1 TABLET (5 MG TOTAL) BY MOUTH DAILY. 90 tablet 3 09/25/19 25 025 Discontin ued(No longer taking) minoxidiL (LONITEN) 2.5 MG tabletIndications: Androgenic alopecia Take 1 tablet (2.5 mg total) by mouth daily. 90 tablet 12/01/19 25 025 Discontin ued(No longer taking) Active Problems Problem Noted Date Diagnosed Date [...] discomfort. Failed prior treatments with antibiotics and sqhk-uaj-yhxnwat antifungals. Possible fungal etiology suggested by patient. [...] Started on Eliquis for anticoagulation for elevated [id number] Echo showed Mild concentric LVH. LV cavity [...] hearing loss on right. Had evaluation w event specialist food demonstrator Rosacea 05/02/2017 Overview (05/02/2017): Acne rosacea. used topical clindamycin for several years. Assessment & Plan (05/02/2017 8:21 PM EST): Will try switching to metrogel Multiple thyroid nodules 05/02/2017 Overview (03/18/2022): 10/2016 Ul multiple small bilat nodules, largest on R lobe 11 mm x 10 mm. 05/2018 Bx benign. Plan yearly FU UL 06/[address] Mahan. Stable. Recommend FU UL in 1 year 06/2021 [...] Date Diagnosed Date Resolved Date Intra-abdominal abscess 05/29/20230 01/2024 Right lower quadrant abdominal pain 05/23/2023 06/20/2023 Perforated appendicitis 05/22/20230 01/2024 Assessment & Plan (05/25/2023 2:23 PM EST): [...] per surgery Acute pain of left knee 06/18/2021 05/06/2022 Assessment & Plan (06/18/2021 9:10 PM EST): [...] Encounters Date Type Department Care Team Description 04/18/2025 9:00 AM EST Office Visit [facility] [address], [address] [place] [address] José Calhoun MD Atrial fibrillation, unspecified type (Primary Dx); Encounter for anticoagulation discussion and counseling 04/12/2025 Telephone [facility] [address] [place] [address] Soren Galindo, KARL 03/12/2025 Refill [facility] [address], [address] [place] [address] José Calhoun MD Medication Refill 02/21/2025 Refill [facility] [address] [place] [address] Angela Jerez MD Medication Refill from Last 3 Months Immunizations Immunization Administration [...] Sign Reading Time Taken Comments Blood Pressure 158/102 04/18/2025 9:02 AM EST Pulse 75 04/18/2025 9:02 AM EST Temperature 36.2 C (97.2 F) 05/29/2024 9:48 AM EST Respiratory Rate 18 11/28/2023 1:45 PM EDT Oxygen Saturation 98% 04/18/2025 9:02 AM EST Inhaled Oxygen Concentration - - Weight 90.7 kg (200 lb) 04/18/2025 9:02 AM EST Height 170.2 cm (5' 7.01 ) 04/18/2025 9:02 AM ES T Body Mass Index 31.32 04/18/2025 9:02 AM EST Plan of Treatment Upcoming Encounters Date Type Department Care Team (Late st Contact Info) Description 04/21/2026 12:40 PM EST Office Visit [facility] [address], [address] [place] [address] José Calhoun MD 22 [facility], [address] [place] [address] Health Maintenance Due Date Last Done Comments HEPATITIS C SCREENING 1973 COLOGUARD 2000 COLONOSCOPY 2000 FOBT 2000 SIGMOIDOSCOPY 2000 VIRTUAL COLONOSCOPY 2000 ZOSTER VACCINES (1 of 2) 2005 COLORECTAL CANCER SCREENING 03/17/2023 FIT TEST 03/17/2023 03/17/2022 MAMMOGRAM 07/10/2023 07/10/2021, 08/10/2019 DEPRESSION SCREENING 08/17/2024 08/18/2023 CREATININE LEVEL 08/31/2024 09/01/2023, 04/2024, 06/16/2023, Additional history exists POTASSIUM LEVEL 08/31/2024 09/01/2023, 06/13, 06/16/2023, Additional history exists INFLUENZA VACCINE (#1) 2025 , 03/25/2020, 03/09/2018, Additional history exists COVID-19 VACCINE ( season) 2025 09/11/2020, 08/21/2020 BLOOD PRESSURE 10/16/2025 04/18/2025 SCREENING FOR DIABETES 09/13/2026 09/14/2023, 2023 LIPID PANEL 05/25/2028 05/25/2023, 10/2021, 06/17/2021, Additional history exists RSV VACCINE (1 - 1-dose 75+ series) 2030 Adult Td,Tdap Booster 03/18/2032 03/18/2022 PNEUMOCOCCAL VACCINES (50+ years) Completed 03/18/2022, 06/18/2021 OSTEOPOROSIS SCREENING INITIAL (ONE-TIME) Completed 05/23/2024 SMOKING STATUS SCREENING (Once After 26 Yrs) Completed 04/18/2025 HEPATITIS A VACCINES Aged Out No long [...] PM EST Screening due COMPREHENSIVE METABOLIC PANEL (CMP) Routine 09/01/2023 10:37 AM EDT S/P laparoscopic [...] Referred By: SOREN GALINDO Indications: Postmenopausal Scanner: Bellmetric A with serial# of [id number] located at [facility] Bone Density Scan (DXA) 05/23/24 Details [...] -2.5), or Osteoporosis (T-score <= -2.5). At [facility], T-scores are compared to peak bone [...] Referred By: SOREN GALINDO Indications: Postmenopausal Scanner: Bellmetric A with serial# of [id number] located at [facility] Bone Density Scan (DXA) 05/23/24 Details [...] -2.5), or Osteoporosis (T-score <= -2.5). At [facility], T-scores are compared to peak bone [...] 05/23/2024 13:52:03 IMPRESSION: Interpretation: Osteopenia. Soren Galindo PE TEACHER IMG BD BONE DENSITY DEXA Final Result * (ABNORMAL) Comprehensive metabolic panel (09/01/2023 10:37 AM EDT) SODIUM 140 133 - 146 mmol/L [facility] POTASSIUM 4.5 3.3 - 5.1 mmol/L [facility] CHLORIDE 103 96 - 108 mmol/L [facility] CO2 28 21 - 35 mmol/L [facility] BUN 20(H) 6 - 19 mg/dL [facility] CREATININE 0.50 0.5 - 1.5 mg/dL [facility] GLUCOSE 105(H) 70 - 99 mg/dL [facility] ALBUMIN 4.7 3.9 - 4.8 g/dL [facility] TOTAL PROTEIN 7.7 6.5 - 8.0 g/dL [facility] CALCIUM 9.8 8.4 - 10.3 mg/dL [facility] ALKALINE PHOSPHATASE 71 39 - 117 U/L [facility] TOTAL BILIRUBIN 0.4 0.0 - 1.2 mg/dL [facility] AST 25 0 - 37 U/L [facility] ALT 22 0 - 40 U/L [facility] GLOBULIN 3.0 1 - 4.8 g/dL [facility] EGFR 102 >59 mL/min/1.7 3m2 [facility] Comment:Estimated glomerular filtration rate calculated using the CKD-EPI refit equation. ANION GAP 14 10 - 20 mmol/L [facility] Blood 09/01/2023 10:3 7 AM EDT 09/01/2023 10:42 AM EDT us Brenna Fitzgerald MD LAB BLOOD BKR ORDERABLES Fin al Result [facility] [address] [place] [address] * (ABNORMAL) Lipid panel (05/25/2023 2:48 AM EST) HDL 13 mg/dL [facility] Comment: Interpretation <40 mg/dL: Low HDL cholesterol (major risk factor for CHD) Greater than or equal to 60 mg/dL: High HDL cholesterol ( negative risk factor for CHD) HDL - cholesterol is affected by a number of factors, e.g. smoking, excerise, hormones, sex and age. CHOLESTEROL 127 0 - 240 mg/dL [facility] TRIGLYCERIDES 387(H) 30 - 160 mg/dL [facility] LDL 37(L) 50 - 129 mg/dL [facility] Comment: LDL levels in terms of risk for coronary heart disease: <100 mg/dL: Optimal 100-129 mg/dL: Near or above optimal 130-159 mg/dL: Borderline high 160-189 mg/dL: High >190 mg/dL: Very High CARDIAC RISK RATIO 9.8(H) 3.3 - 4.4 C [facility] Blood 05/25/2023 2:48 AM EST 05/25/2023 3:07 AM EST us Kelsey Foote PECAN CLEANER LAB BLOOD BKR ORDERABLES Final Result Performing Organization Address City/[facility]/ZIP Co de Phone Number [address] [address] * Fecal immunochemical test x1 (FIT) (03/17/2022 8:00 AM EDT) Immuno Fecal Occult Negative Negative [facility] Stool (Stool) 03/17/2022 8:0 0 AM EDT 03/17/2022 10:59 AM EDT us Katie Gonzalez PE TEACHER LAB BODY FLUIDS AND STOOL ORDERABLES Final Result [address] [address] * BI MAMMOGRAM SCREENING WITH TOMOSYNTHESIS WITH [...] could obscurea lesion on mammography. Katie Gonzalez [facility] IMG MG EXAMS Final Resu lt from Last 3 Months or Most Recently Relevant to Health Maintenance Insurance MEDICARE PART A & [place] [address] [place] [address] MEDICARE SUPPLEMENT MEDICARE PART A & B Member Subscriber Plan / Payer ( fective 2021-) Name:Oumar Tawanna Member ID:[id number] Relation to Subscriber:Self Name:Tawanna Oseguera Subscriber ID:[id number] Payer ID:[id number] Group ID:VERIFIED VIA RITA 06/17/21 Type:Medicare Address: [employer] [address] [place] [id number] [place] [address] MEDICARE SUPPLEMENT Member Subscriber Plan / Payer (Ef fective 2021-) Name:Tawanna Oseguera Relation to Subscriber:Self Name:Tawanna Oseguera Payer ID:[id number] (NAIC) Group ID[facility] 06/17/2021 Type:HMO Address: [facility] [employer] [address] [address] MEDICARE PART A & B [facility] MEDICARE SUPPLEMENT MEDICARE PART A & [place] [address] [address] MEDICARE SUPPLEMENT MEDICARE PART A & B MEDICARE SUPPLEMENT MEDICARE PART A & [place] [address] [place] [address] MEDICARE SUPPLEMENT MEDICARE PART A & B Member Subscriber Plan / Payer (Ef fective 2021-) Name:AimeeliliTawanna edgar Member ID:[id number] Relation to Subscriber:Self Name:Tawanna Oseguera Subscriber ID:[id number] Payer ID:[id number] Group ID:VERIFIED VIA RITA 06/17/21 Type:Medicare Address: [employer] [address] [place] [address] [place] [address] MEDICARE SUPPLEMENT MEDICARE PART A & B [facility] MEDICARE SUPPLEMENT MEDICARE PART A & B [facility] MEDICARE SUPPLEMENT Advance Directives For more information, please contact: [phone] (9AM - 5PM Marta/[facility], Tuesday-Tuesday) * Full Code (Latest Code Status on File) Date Activated Date Inactivated Comments 05/29/2023 9:15 PM Question Answer Comments Code Status Confirmed With: Patient * Full Code Date Activated Date Inactivated Comments 05/22/2023 1:26 PM 05/29/2023 9:15 PM Question Answer Comments Code Status Confirmed With: Patient Care Teams Repair Table Operator Relationship Specialty Start Date End Date Soren Galindo CNP [address] [facility] [address] [place] [address] PCP - General Family Medicine 08/19/23 Soren Galindo CNP [address] [facility] [address] [place] [address] Insurance Assigned Provider 09/16/24 Additional Source Comments The information contained in this document represents components of the legal health record. It is not the complete legal health record.[facility]
--- OUTSIDE RECORDS SUMMARY | 2025-05-08 10:34 | XMS_ITS | Encounter Summary ---
Author Organization [facility] Address [address] [place] [address] [place] [address] Phone Care Team Providers Care Parachutist/Combatant Diver Qualified Name Role Phone Katie Gonzalez [facility] Primary Care Provider [phone] Soren Cesar [facility] Primary Care Provider + Soren Cesar SHOE TURNER Unavailable [phone] Encounter Details Date Type Department Care Team (Late st Contact Info) Description 05/26/2023 Procedure Pass [facility] Cardiovascular And Interventional Radiology [address] [place] [address] Social History Tobacco Use Types Packs/Day Years [...] high school, GED, job training, learning the Kyrgyz language, technical skills, or developing parenting skills)? [...] 9:30 PM EST Monika Barros RN * [place] Suicide Severity Rating Scale (Screener/Recent Self-Report) Question [...] Description 04/21/2026 12:40 PM EST Office Visit [facility] 22 [facility] 3rd Floor, [address] [place] [address] José Calhoun MD 22 [facility], [address] [address] [email or web address] documented as of this encounter Visit Diagnoses Not on filedocumented in this encounter Additional Health Concerns Assessment Noted Time PHQ-2 Depression Total Score: 0 08/04/19 23 3:35 PM EST documented as of this encounter Care Teams Parachutist/Combatant Diver Qualified Relationship Specialty Start Date End Date Katie Gonzalez CNP 15 [facility], 2nd [place] [address] PCP - General Nurse Practitioner 05/16/23 08/18/23 Soren Cesar CNP [address] [place] [address] PCP - General Family Medicine 08/19/23 Soren Cesar CNP [address] [place] [address] Insurance Assigned Provider 09/16/24 documented as of this encounter Additional Source Comments The information contained in this document represents components of the legal health record. It is not the complete legal health record.[facility]
--- OUTSIDE RECORDS SUMMARY | 2025-05-08 10:34 | XMS_ITS | Encounter Summary ---
Author Organization [facility] Address [address] [place] [address] [place] [address] Phone Care Team Providers Care Oven Technician Name Role Phone Katie Gonzalez DAY LIGHT RELIEF OPERATOR Primary Care Provider [phone] Soren Cesar [facility] Primary Care Provider + Soren Cesar DAY LIGHT RELIEF OPERATOR Unavailable [phone] Encounter Details Date Type Department Care Team (Late st Contact Info) Description 05/22/2023 Procedure Pass [facility], Ct Scan - [address] [address] Social History Tobacco Use Types Packs/Day Years [...] high school, GED, job training, learning the Syrian language, technical skills, or developing parenting skills)? [...] 05/22/2023 5:35 AM Lucita Hebert, JARRED * [facility] Suicide Severity Rating Scale (Screener/Recent Self-Report) Question [...] Description 04/21/2026 12:40 PM EST Office Visit [facility] 22 [facility] 3rd Floor, [address] [place] [address] José Calhoun MD 22 [facility], [address] [address] documented as of this encounter Visit Diagnoses Not on filedocumented in this encounter Additional Health Concerns Assessment Noted Time PHQ-2 Depression Total Score: 0 08/04/19 3:35 PM EST documented as of this encounter Care Teams Oven Technician Relationship Specialty Start Date End Date Katie Gonzalez CNP 15 [facility], 2nd [place] [address] PCP - General Nurse Practitioner 05/16/23 08/18/23 Soren Cesar CNP [address] [place] [address] PCP - General Family Medicine 08/19/23 Soren Cesar CNP [address] [place] [address] Insurance Assigned Provider 09/16/24 documented as of this encounter Additional Source Comments The information contained in this document represents components of the legal health record. It is not the complete legal health record.[facility]
--- OUTSIDE RECORDS SUMMARY | 2025-05-08 10:34 | XMS_ITS | Encounter Summary ---
Author Organization [facility] Address [address] [place] [address] [place] [address] Phone Care Team Providers Care Track Walker Name Role Phone Katie Gonzalez [facility] Primary Care Provider [phone] Soren Cesar [facility] Primary Care Provider + Soren Cesar [facility] Unavailable [phone] Encounter Details Date Type Department Care Team (Late st Contact Info) Description 05/22/2023 Procedure Pass [place] Admitting Dept - Virtual Department [address] [place] [address] Social History Tobacco Use Types Packs/Day Years [...] high school, GED, job training, learning the Azeri language, technical skills, or developing parenting skills)? [...] 05/22/2023 5:35 AM Lucita Hebert, JARRED * [place] Suicide Severity Rating Scale (Screener/Recent Self-Report) Question [...] Description 04/21/2026 12:40 PM EST Office Visit [facility] 22 [facility] 3rd Floor, [address] [place] [address] José Calhoun MD 22 [facility], [address] [address] [email or web address] documented as of this encounter Visit Diagnoses Not on filedocumented in this encounter Additional Health Concerns Assessment Noted Time PHQ-2 Depression Total Score: 0 08/04/19 23 3:35 PM EST documented as of this encounter Care Teams Track Walker Relationship Specialty Start Date End Date Katie Gonzalez CNP 15 [facility], 2nd [place] [address] PCP - General Nurse Practitioner 05/16/23 08/18/23 Soren Cesar CNP [address] [place] [address] PCP - General Family Medicine 08/19/23 Soren Cesar CNP [address] [place] [address] [address] [place] [address] Insurance Assigned Provider 09/16/24 documented as of this encounter Additional Source Comments The information contained in this document represents components of the legal health record. It is not the complete legal health record.[facility]
--- OUTSIDE RECORDS SUMMARY | 2025-05-08 10:34 | XMS_ITS | Encounter Summary ---
Author Organization [facility] Address [address] [place] [address] [place] [address] Phone Care Team Providers Care Shipping Team Leader Name Role Phone Katie Gonzalez SAFETY ENGINEER [employer]SE[employer] Primary Care Provider [phone] Soren Cesar [facility] Primary Care Provider + Soren Cesar SAFETY ENGINEER [employer]SE[employer] Unavailable [phone] Encounter Details Date Type Department Care Team (Late st Contact Info) Description 05/24/2023 Procedure Pass [facility] [address] [place] [address] Social History Tobacco Use Types Packs/Day Years [...] Description 04/21/2026 12:40 PM EST Office Visit [facility] [address] [place] [address] 3rd Floor, [address] [place] [address] José Calhoun MD 22 [facility], [address] [place] [address] documented as of this encounter Visit Diagnoses Not on filedocumented in this encounter Additional Health Concerns Assessment Noted Time PHQ-2 Depression Total Score: 0 08/04/19 3:35 PM EST documented as of this encounter Care Teams Shipping Team Leader Relationship Specialty Start Date End Date Katie Gonzalez CNP 15 [facility], 2nd [place] [address] PCP - General Nurse Practitioner 05/16/23 08/18/23 Soren Cesar CNP [address] [place] [address] 7 [place] [address] PCP - General Family Medicine 08/19/23 Soren Cesar CNP [address] [place] [address] 7 [place] [address] [email or web address] Insurance Assigned Provider 09/16/24 documented as of this encounter Additional Source Comments The information contained in this document represents components of the legal health record. It is not the complete legal health record.[facility]
--- OUTSIDE RECORDS SUMMARY | 2025-05-08 10:34 | XMS_ITS | Encounter Summary ---
Author Organization [facility] Address [address] [place] [address] [place] [address] Phone Care Team Providers Care Component Lab Tech Name Role Phone Katie Gonzalez CNP Primary Care Provider [phone] Em Uribe Unavailable [phone] Pcp, Unknown Primary Care Provider Unavailabl e Katie Gonzalez CNP Primary Care Provider [phone] Soren Cesar [facility] Primary Care Provider + Soren Cesar CNP Unavailable [phone] Encounter Details Date Type Department Care Team (Late st Contact Info) Description 07/06/2019 Ancillary Orders Virtual Department [address] [place] [address] Kami Mahan MD 33 [facility], [address] [place] [address] [email or web address] Multinodular goiter Social History Tobacco Use Types [...] Description 04/21/2026 12:40 PM EST Office Visit [facility] [address] [place] [address] 3rd Floor, [address] [place] [address] José Calhoun MD [address] [address] documented as of this encounter Visit Diagnoses Diagnosis Multinodular goiter Nontoxic multinodular goiter documented in this encounter Care Teams Component Lab Tech Relationship Specialty Start Date End Date Katei Gonzalez CNP 15 [facility], [address] [place] [address] PCP - General Family Medicine 07/06/19 05/04/23 Pcp, Unknown PCP - General 05/05/23 05/15/23 Katie Gonzalez CNP [address] [address] PCP - General Nurse Practitioner 05/16/23 08/18/23 Soren Cesar CNP [address] [place] [address] PCP - General Family Medicine 08/19/23 Em Uribe [address] [place] [address] PHCM Community Health Worker 03/19/22 03/24/22 Soren Cesar CNP [address] [place] [address], [address] [place] [address] [email or web address] Insurance Assigned Provider 09/16/24 documented as of this encounter Additional Source Comments The information contained in this document represents components of the legal health record. It is not the complete legal health record.[facility]
--- OUTSIDE RECORDS SUMMARY | 2025-05-08 10:34 | XMS_ITS | Encounter Summary ---
Author Organization [facility]ly [facility] Address [address] [place] [address] Phone Care Team Providers Care Supervisor Enrobing Name Role Phone Katie Gonzalez CNP Primary Care Provider [phone] Katie Gonzalez CNP Primary Care Provider [phone] Em Uribe Unavailable [phone] Pcp, Unknown Primary Care Provider Unavailabl e Katie Gonzalez [facility] Primary Care Provider [phone] Soren Cesar [facility] Primary Care Provider + Soren Cesar [facility] Unavailable [phone] Encounter Details Date Type Department Care Team (Late st Contact Info) Description 10/05/2018 Procedure Pass OR Admitting Dept - Virtual Department [address] [place] [address] Social History Tobacco Use Types Packs/Day Years [...] Description 04/21/2026 12:40 PM EST Office Visit [facility] [address] [place] [address] 3rd Floor, [address] [place] [address] José Calhoun MD [address] [address] documented as of this encounter Visit Diagnoses Not on filedocumented in this encounter Care Teams Supervisor Enrobing Relationship Specialty Start Date End Date Katie Gonzalez CNP [address] [address] PCP - General 03/31/17 07/05/19 Katie Gonzalez CNP [address] [place] [address] PCP - General Family Medicine 07/06/19 05/04/23 Pcp, Unknown PCP - General 05/05/23 05/15/23 Katie Gonzalez CNP [address] [place] [address] PCP - General Nurse Practitioner 05/16/23 08/18/23 Soren Cesar CNP [address] [place] [address] PCP - General Family Medicine 08/19/23 Em Uribe [address] [place], [place] [id number] [email or web address] PHCM Community Health Worker 03/19/22 03/24/22 Soren Cesar CNP [address] [place] [address] 7 [place] [address] [email or web address] Insurance Assigned Provider 09/16/24 documented as of this encounter Additional Source Comments The information contained in this document represents components of the legal health record. It is not the complete legal health record.[facility]
--- OUTSIDE RECORDS SUMMARY | 2025-05-08 10:34 | XMS_ITS | Continuity of Care Document ---
Author Organization [facility] Address [address] [facility] [address] [place], [place] Phone [phone] Care Team Providers Care Mergers And Acquisitions Associate Name Role Phone Katie Gonzalez NP Care Team Information Weir Fisherman Unavailable KAMI MAHAN M.D. Care Team Information [...] Medications SIG Qnty Indications Ordering Provider Date Whnjeiipdw23uw Tablets 1 by mouth every day 90tabs Katie Gonzalez NP Cctwmxnjxlr0dg Tablets Take 1/2 Tablet By Mouth Daily Unknown History Medications Bxikoufoiowwie08yh Tablets Katie Jonas NP - 07/06/2019
--- OUTSIDE RECORDS SUMMARY | 2025-05-08 10:34 | XMS_ITS | Encounter Summary ---
Author Organization [facility] Address [address] [place] [address] Phone Care Team Providers Care Railroad Signal Technician Name Role Phone Katie Gonzalez CNP Primary Care Provider [phone] Katie Gonzalez CNP Primary Care Provider [phone] Em Uribe Unavailable [phone] Pcp, Unknown Primary Care Provider Unavailabl e Katie Gonzalez CNP Primary Care Provider [phone] Soren Cesar [facility] Primary Care Provider + Soren Cesar [facility] Unavailable [phone] Encounter Details Date Type Department Care Team (Late st Contact Info) Description 04/10/[address] [facility] Phleb [address] [place] [address] Lynn Massey PA [address] [place] [address] [facility] [place] [address] Nontoxic multinodular goiter (Primary Dx) Social History [...] Description 04/21/2026 12:40 PM EST Office Visit [facility] [address] [facility] 3rd Floor, [address] [place] [address] José Calhoun MD [address] [facility], [address] [place] [address] [email or web address] documented as of this encounter Results * Free T4 (04/10/2018 10:28 AM EDT) FREE T4 1.4 0.9 - 1.7 ng/dL [facility] Blood 04/10/2018 10:2 8 AM EDT 04/10/2018 10:31 AM EDT us Lynn RASMUSSEN LAB BLOOD BKR ORDERAB LES Final Result [address] [address] * TSH (04/10/2018 10:28 AM EDT) TSH 0.95 0.27 - 4.20 uIU/mL [facility] Blood 04/10/2018 10:2 8 AM EDT 04/10/2018 10:31 AM EDT Lynnhumberto Massey PA LAB BLOOD BKR ORDERAB LES Final Result Performing Organization Address City/[facility]/ZIP Co de Phone Number [address] [address] documented in this encounter Visit Diagnoses Diagnosis Nontoxic multinodular goiter- Primary documented in this encounter Care Teams Railroad Signal Technician Relationship Specialty Start Date End Date Katie Gonzalez CNP [address] [address] PCP - General 03/31/17 07/05/19 Katie Gonzalez KARL Moreno [address] [address] PCP - General Family Medicine 07/06/19 05/04/23 Pcp, Unknown PCP - General 05/05/23 05/15/23 CarlosKatie CNP [address] [address] PCP - General Nurse Practitioner 05/16/23 08/18/23 Soren Cesar CNP [address] [place] [address] 7 [place] [address] PCP - General Family Medicine 08/19/23 Em Uribe [address] [place] [address] PHCM Community Health Worker 03/19/22 03/24/22 Soren Cesar CNP [address] [place] [address] 7 [place] [address] Insurance Assigned Provider 09/16/24 documented as of this encounter Additional Source Comments The information contained in this document represents components of the legal health record. It is not the complete legal health record.[facility]
--- OUTSIDE RECORDS SUMMARY | 2025-05-08 10:34 | XMS_ITS | Encounter Summary ---
Author Organization [facility] Address [address] [place] [address] [place] [address] Phone Care Team Providers Care Associate Professor Of Literature Name Role Phone Katie Gonzalez DEICER FINISHER Primary Care Provider [phone] Soren Cesar [facility] Primary Care Provider + Soren Cesar DEICER FINISHER Unavailable [phone] Encounter Details Date Type Department Care Team (Late st Contact Info) Description 05/31/2023 Procedure Pass [facility], Ct Scan - [address] [address] Social History Tobacco Use Types Packs/Day Years [...] high school, GED, job training, learning the Tajik language, technical skills, or developing parenting skills)? [...] you have trouble paying for medicines? I jsoe se not to answer 06/18/2021 Paying Utility [...] Description 04/21/2026 12:40 PM EST Office Visit [facility] [address] [place] [address] 3rd Floor, [address] [place] [address] José Calhoun MD 22 [facility], [address] [place] [address] documented as of this encounter Visit Diagnoses Not on filedocumented in this encounter Additional Health Concerns Assessment Noted Time PHQ-2 Depression Total Score: 0 08/04/19 23 3:35 PM EST documented as of this encounter Care Teams Associate Professor Of Literature Relationship Specialty Start Date End Date Katie Gonzalez CNP [address] [facility], 2nd [place] [address] [email or web address] PCP - General Nurse Practitioner 05/16/23 08/18/23 Soren Cesar CNP [address] [place] [address] 7 [place] [address] PCP - General Family Medicine 08/19/23 Soren Cesar CNP [address] [place] [address] 7 [place] [address] [email or web address] Insurance Assigned Provider 09/16/24 documented as of this encounter Additional Source Comments The information contained in this document represents components of the legal health record. It is not the complete legal health record.[facility]
--- OUTSIDE RECORDS SUMMARY | 2025-05-08 10:34 | XMS_ITS | Encounter Summary ---
Author Organization [facility] Address [address] [facility] [address] [place] [address] Phone Care Team Providers Care Corporate Sales Manager Name Role Phone Katie Gonzalez CNP Primary Care Provider [phone] Soren Cesar CNP Primary Care Provider + Soren Cesar MUSEUM TECHNICIAN Unavailable [phone] Encounter Details Date Type Department Care Team (Late st Contact Info) Description 06/27/2023 Transcribe Orders [facility] Specimen Processing [address] [place] [address] Katie Gonzalez CNP [facility] 2nd [place] [address] [email or web address] Social History Tobacco Use Types Packs/Day Years [...] Description 04/21/2026 12:40 PM EST Office Visit [facility] [address], [address] [place] [address] José Calhoun MD 22 [facility], [address] [place] [address] [email or web address] documented as of this encounter Visit Diagnoses Not on filedocumented in this encounter Additional Health Concerns Assessment Noted Time PHQ-2 Depression Total Score: 0 08/04/19 23 3:35 PM EST documented as of this encounter Care Teams Corporate Sales Manager Relationship Specialty Start Date End Date Katie Gonzalez CNP 15 [facility], 2nd [place] [address] [email or web address] PCP - General Nurse Practitioner 05/16/23 08/18/23 Soren Cesar CNP [address] [facility], [facility] [address] [place] [address] PCP - General Family Medicine 08/19/23 Soren Cesar CNP [address] [place] [address], [facility] 7 [place] [address] [email or web address] Insurance Assigned Provider 09/16/24 documented as of this encounter Additional Source Comments The information contained in this document represents components of the legal health record. It is not the complete legal health record.[facility]
--- NOTE | 2025-05-08 11:15 | MHC.AU.HA2 ---
Hearing Instrument Fitting- Adult- Binaural Date of Visit: 05/08/25 Hearing Instruments Dispensed: Right Ear: Make, Model, Color, Serial Number: Sajan Virto [id number] SN: [id number] A Class Lineman Repair Warranty: 05/04/2028 A Class Lineman Loss and Damage Warranty: 05/04/2028 [facility] Service Plan: OPTED OUT Battery Size: 10 Type of Wax Guard: CeruStop Left Ear: Make, Model, Color, Serial Number: Phonak Virto [id number] SN: [id number] A Class Lineman Repair Warranty: 05/04/2028 A Class Lineman Loss and Damage Warranty: 05/04/2028 [facility] Service Plan: OPTED OUT Battery Size: 10 Type of Wax Guard: CeruStop Summary of Fitting: Ran feedback chartered wealth manager and real ear measures. Comfortable at real ear settings. Set push button to be volume up at Tawanna's request. Briefly reviewed care and use. As a long-time FONG user, Tawanna is familiar with general maintenance, changing battery and wax guards, insertion/removal etc. Noted left FONG felt like it did not fully insert or sit properly in ear, right FONG comfortable. Left is tolerable, does not work its way out of ear; however, Tawanna will monitor and will readdress at follow up, if needed. Recommendations: A hearing instrument follow-up was scheduled. Diagnosis Code(s): Primary Diagnosis: H90.3 Bilateral Sensorineural Hearing Loss Signature: Provider: Akil Knapp, [facility]
== END 2025-05-08 09:29 | disposition home or self-care (01) ==
LOC: HO.HAP 09:28
PROVIDERS: Visit Provider Nurse Practitioner Family
DX: H90.3 Sensorineural hearing loss, bilateral (principal)
CPT/HCPCS: V5259